=== PATIENT | female | born 1965 | race Caucasian/White ===

== ENCOUNTER 2016-07-19 09:42 | Emergency (ER) | payer OTHER ==
--- NOTE | 2016-07-19 10:50 | UC ---
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 - History of Current Complaint Chief Complaint: UCEye Stated Complaint: EYE COMPLAINT Time Seen by Provider: 07/19/16 10:21 Hx Obtained From: Patient Hx Last Menstrual Period: End jun Location of Injury: Conjunctiva Aggravating Factor(s): Nothing Alleviating Factor(s): Nothing Associated Signs And Symptoms: Positive: Drainage (Purulent) - Risk Factors Penetrating Injury Risk Factor: Negative Globe Rupture Risk Factors: Negative - Allergies/Home Medications Allergies/Adverse Reactions: Allergies Allergy/AdvReac Type Severity Reaction Status Date / Time Bee Venom AdvReac Headache, Verified 07/19/16 10:30 GI Upset Home Medications: Home Medications Erythromycin TAB* 250 mg PO TID 07/19/16 [History Confirmed 07/19/16] PMH/Surg Hx/FS Hx/Imm Hx Previously Healthy: Yes Endocrine History Of: Denies: Diabetes, Thyroid Disease, Hyperthyroidism, Hypothyroidism, Dyslipidemia Cardiovascular History Of: Denies: Cardiac Disorders, Hypertension, Pacemaker/ICD, Myocardial Infarction , Congestive Heart Failure, Atrial Fibrillation, Deep Vein Thrombosis, Bleeding Disorders Respiratory History Of: Denies: COPD, Asthma, Bronchitis, Pneumonia, Pulmonary Embolism GI/ History Of: Reports: Gastroesophageal Reflux, Gall Bladder Disease Denies: Ulcer, Gastrointestinal Bleed, Kidney Stones, Diverticulitis, Renal Disease, Urosepsis Neurological History Of: Denies: TIA, CVA, Dementia, Seizures, Migraine Psychological History Of: Reports: Anxiety, Depression Denies: Bipolar Disorder, Schizophrenia, Post Traumatic Stress Disorder Cancer History Of: Denies: Lung Cancer, Colorectal Cancer, Breast Cancer, Prostate Cancer, Cervical Cancer Other History Of: Negative For: HIV, Hepatitis B, Hepatitis C, Anticoagulant Therapy - Surgical History Surgical History: Yes Surgery Procedure, Year, and Place: 09/08/14--ENDOSCOPY. 06/19/14-- CHOLECYSTECTOMY. COLONOSCOPY 2015 Other Surgical History: cholecystectomy 06/2014, no other abd surgeries - Family History Known Family History: Positive: Unknown, Other - Denies FMH of HTN Negative: Cardiac Disease, Hypertension, Diabetes - Social History Occupation: Employed Full-time Lives: With Family Alcohol Use: None Substance Use Type: None, Prescribed Substance Use Comment - Amount & Last Used: xanax Smoking Status (MU): Never Smoked Tobacco - Immunization History Most Recent Influenza Vaccination: 01/2015 Review of Systems Constitutional: Negative Skin: Negative Eyes: Drainage, Eye Redness ENT: Negative Respiratory: Negative Cardiovascular: Negative Gastrointestinal: Negative Genitourinary: Negative Motor: Negative Neurovascular: Negative Musculoskeletal: Negative Neurological: Negative Psychological: Negative All Other Systems Reviewed And Are Negative: Yes Physical Exam Triage Information Reviewed: Yes Appearance: No Pain Distress, Well-Nourished Vital Signs: Initial Vital Signs Temp 98.3 F 07/19/16 10:20 Pulse 98 07/19/16 10:20 Resp 18 07/19/16 10:20 BP 126/68 07/19/16 10:20 Vital Signs Reviewed: Yes Eyes: Positive: Conjunctiva Inflamed, Discharge ENT: Positive: Pharynx normal, TMs normal. Negative: Nasal congestion Neck: Positive: No Lymphadenopathy Respiratory: Positive: Lungs clear, Normal breath sounds, No respiratory distress Cardiovascular: Positive: RRR, No Murmur, Pulses Normal Abdomen Description: Positive: Nontender, Soft Bowel Sounds: Positive: Present Musculoskeletal: Positive: No Edema Neurological: Positive: Alert Psychological Exam: Normal Skin Exam: Normal Procedures - Procedure Summary Procedure Summary: left eye observed under flouriscine no foreign objects or abrasions observed Eye Complaint Course/Dx - Differential Dx/Diagnosis Differential Diagnosis/HQI/PQRI: Conjunctivitis Provider Diagnoses: conjunctivitis Discharge - Discharge Plan Condition: Stable Disposition: HOME Prescriptions: Erythromycin OPTH OINT* 1 applic BOTH EYES TID #1 tube Patient Education Materials: Conjunctivitis (ED) Referrals: Moriah Ty MD [Primary Care Provider] - Additional Instructions: CONJUNCTIVITIS What is Conjunctivitis? Conjunctivitis is redness and swelling of the conjunctiva, the thin transparent layer that lines the inner eyelid and covers the white part of the eye. The three main types of conjunctivitis are infectious, allergic, and chemical. The infectious type, commonly called "pink eye," is caused by a contagious virus or by bacteria. Your body's allergies to pollen, cosmetics, animals or fabrics often bring on allergic conjunctivitis. Irritants like air pollution, noxious fumes and chlorine in swimming pools may produce the chemical form. Symptoms Might Include: More tearing Eye pain Redness in the eyes Gritty feeling in the eyes Itching of the eye Blurred vision Sensitivity to light Crusts that form on the eyelid overnight Treatment Recommendations: Use eye drops or ointment as directed. Do not rub or touch your eyes. Wash your hands frequently. Use cool compresses to relieve pain and itching. Prevention: Do not share eye make-up. Replace eye make-up frequently. Do not share towels, washcloths, etc. Do not share eye drops. Disinfect and handle contact lenses properly. Call Your Doctor or Return Here IF: Your symptoms worsen or do not improve in 3 to 4 days. You have problems with, or loss of, your vision. You have a significant increase in pain. You have any new symptoms that worry you.
[2016-07-19] MEDS ORDERED: Tetracaine 0.5% OPTH.SOL 4 ML* 1 DROP BTL ONE (10:54)
[2016-07-19] MEDS ORDERED: Fluorescein Sodium TOPICAL* 1 MG TEST ONE (10:54)
[2016-07-19] MEDS ORDERED: BSS OPTH.SOL* BTL ONE (10:54)
[2016-07-19 10:56] VITALS: BP 126/68
== END 2016-07-19 11:11 | disposition home or self-care (01) ==
LOC: UCCORT 09:42
DX: H10.32 Unspecified acute conjunctivitis, left eye (principal); Z90.49 Acquired absence of other specified parts of digestive tract
CPT/HCPCS: 99212; A9270-GY; G0463

== ENCOUNTER 2016-12-21 09:31 | Emergency (ER) | payer OTHER ==
[2016-12-21 10:31] VITALS: BP 124/70
--- NOTE | 2016-12-21 11:11 | UC ---
Throat Pain/Nasal Renato HPI - HPI Summary HPI Summary: nasal congestion and reflux symptoms. Every morning for the last 5 days she has had morning gagging and water brash symptoms. During the day she denies sore throat or significant cough. She also has some mild symptoms of post nasal drip. She has seen GI in the past many times and has had two upper endoscopies. she is on PPI twice a day and another "stomach pill" 4 times a day and at times if she does not cut this large pill it will at times get stuck. - History of Current Complaint Chief Complaint: UCRespiratory Stated Complaint: COUGH/CHEST CONGESTION Time Seen by Provider: 12/21/16 10:49 Hx Obtained From: Patient Hx Last Menstrual Period: 3RD WK IN Onset/Duration: Gradual Onset, Lasting Days Severity: Mild Cough: Other: - cough and gagging only in the morning. Associated Signs & Symptoms: Positive: Dysphagia - Epiglottits Risk Factors Epiglottis Risk Factors: Negative - Allergies/Home Medications Allergies/Adverse Reactions: Allergies Allergy/AdvReac Type Severity Reaction Status Date / Time Bee Venom AdvReac Headache, Verified 12/21/16 10:22 GI Upset Ibuprofen AdvReac Vomiting Verified 12/21/16 10:22 Home Medications: Home Medications Sucralfate TAB* [Carafate*] 1 gm PO QID 12/21/16 [History Confirmed 12/21/16] PMH/Surg Hx/FS Hx/Imm Hx Previously Healthy: No - GERD. Other History Of: Negative For: HIV, Hepatitis B, Hepatitis C, Anticoagulant Therapy - Surgical History Surgical History: Yes Surgery Procedure, Year, and Place: 09/08/14--ENDOSCOPY. 06/19/14-- CHOLECYSTECTOMY. COLONOSCOPY 2015 Other Surgical History: cholecystectomy 06/2014, no other abd surgeries - Family History Known Family History: Positive: Unknown, Other - Denies FMH of HTN Negative: Cardiac Disease, Hypertension, Diabetes - Social History Lives: With Family Alcohol Use: Occasionally Substance Use Type: None Substance Use Comment - Amount & Last Used: xanax Smoking Status (MU): Never Smoked Tobacco - Immunization History Most Recent Influenza Vaccination: 01/2015 Review of Systems Gastrointestinal: Other - water brash in the morning. All Other Systems Reviewed And Are Negative: Yes Physical Exam Triage Information Reviewed: Yes Appearance: Well-Appearing, No Pain Distress, Obese Vital Signs: Initial Vital Signs Temp 98.1 F 12/21/16 10:25 Pulse 90 12/21/16 10:25 Resp 18 12/21/16 10:25 BP 124/70 12/21/16 10:25 Pulse Ox 97 12/21/16 10:25 Vital Signs Reviewed: Yes Eye Exam: Normal ENT Exam: Normal ENT: Positive: Pharynx normal, TMs normal. Negative: Pharyngeal erythema, Nasal congestion, Tonsillar swelling, Tonsillar exudate, Trismus Neck exam: Normal Respiratory Exam: Normal Cardiovascular Exam: Normal Abdominal Exam: Normal Musculoskeletal Exam: Normal Neurological Exam: Normal Psychological Exam: Normal Skin Exam: Normal Throat Pain/Nasal Course/Dx - Course Course Of Treatment: her symptoms are primarily in the morning. It is gagging and burning. the rest ofthe day she is essentially well. her abd exam is completely benign. she is already being treated aggressively for GERD. She says her prior GI doctor is out of practice she believes. she agrees to f/u with our Gi. some lifestyle modifications suggested. No signs of acute infection of any kind. - Differential Dx/Diagnosis Provider Diagnoses: esophagitis. rhinorrhea. Discharge - Discharge Plan Condition: Good Disposition: HOME Patient Education Materials: Gastritis (ED), Esophagitis (ED) Referrals: Ez Novoa MD [Medical Doctor] - Additional Instructions: Try otc decongestants like mucinex and do not eat any large meals after 6pm. follow up with your primary care doctor as already planned and with our GI doctor as we discussed.
== END 2016-12-21 11:08 | disposition home or self-care (01) ==
LOC: UCCORT 09:31
DX: K20.9 Esophagitis, unspecified (principal); J34.89 Other specified disorders of nose and nasal sinuses; K21.9 Gastro-esophageal reflux disease without esophagitis; E66.9 Obesity, unspecified; Z90.49 Acquired absence of other specified parts of digestive tract; Z88.6 Allergy status to analgesic agent; Z91.030 Bee allergy status
CPT/HCPCS: 99211; G0463

== ENCOUNTER 2016-12-23 16:53 | Emergency (ER) | payer OTHER ==
--- NOTE | 2016-12-23 17:56 | UC ---
Respiratory Complaint HPI - HPI Summary HPI Summary: 51 YEAR OLD FEMALE PRESENTS WITH COUGH, SINUS CONGESTION, AND RIGHT EAR PAIN. - History of Current Complaint Stated Complaint: COUGH/CHEST CONGESTION Time Seen by Provider: 12/23/16 17:52 Hx Obtained From: Patient Hx Last Menstrual Period: 3RD WK IN Onset/Duration: Sudden Onset Severity Initially: Moderate Severity Currently: Moderate Pain Scale Used: 0-10 Numeric - 5 Associated Signs And Symptoms: Positive: Wheezing Related History: Seasonal Allergies - Allergies/Home Medications Allergies/Adverse Reactions: Allergies Allergy/AdvReac Type Severity Reaction Status Date / Time Bee Venom AdvReac Headache, Verified 12/23/16 18:01 GI Upset Ibuprofen AdvReac Vomiting Verified 12/23/16 18:01 PMH/Surg Hx/FS Hx/Imm Hx Previously Healthy: Yes Other History Of: Negative For: HIV, Hepatitis B, Hepatitis C, Anticoagulant Therapy - Surgical History Surgical History: Yes Surgery Procedure, Year, and Place: 09/08/14--ENDOSCOPY. 06/19/14-- CHOLECYSTECTOMY. COLONOSCOPY 2015 Other Surgical History: cholecystectomy 06/2014, no other abd surgeries - Family History Known Family History: Positive: Unknown, Other - Denies H of HTN Negative: Cardiac Disease, Hypertension, Diabetes - Social History Alcohol Use: Occasionally Substance Use Type: None Substance Use Comment - Amount & Last Used: xanax Smoking Status (MU): Never Smoked Tobacco - Immunization History Most Recent Influenza Vaccination: 01/2015 Review of Systems Constitutional: Negative Skin: Negative Eyes: Negative ENT: Negative Respiratory: Negative Cardiovascular: Negative Gastrointestinal: Negative Genitourinary: Negative Motor: Negative Neurovascular: Negative Musculoskeletal: Negative Neurological: Negative Psychological: Negative All Other Systems Reviewed And Are Negative: Yes Physical Exam Triage Information Reviewed: Yes Vital Signs Reviewed: Yes Eye Exam: Normal ENT Exam: Normal Dental Exam: Normal Neck exam: Normal Neck: Positive: 1 Respiratory Exam: Normal Cardiovascular Exam: Normal Abdominal Exam: Normal Musculoskeletal Exam: Normal Neurological Exam: Normal Psychological Exam: Normal Skin Exam: Normal Respiratory Course/Dx - Differential Dx/Diagnosis Provider Diagnoses: cough. sinusitis Discharge - Discharge Plan Condition: Stable Disposition: HOME Prescriptions: Amoxicillin/Clavulanate TAB* [Augmentin TAB 875*] 875 mg PO BID #20 tab Guaifenesin-Codeine [Cheratussin AC] 1 syp PO Q8HR PRN #120 syp MDD 15 ML PRN Reason: Cough LoraTADine TAB(NF) [Claritin 10 MG TAB(NF)] 10 mg PO DAILY #30 tab Patient Education Materials: Allergic Rhinitis (ED) Referrals: Moriah Ty MD [Primary Care Provider] -
[2016-12-23 18:01] VITALS: BP 123/70
== END 2016-12-23 18:05 | disposition home or self-care (01) ==
LOC: UCCORT 16:53
DX: R05 Cough (principal); J32.9 Chronic sinusitis, unspecified
CPT/HCPCS: 99212; G0463

== ENCOUNTER 2017-02-20 10:16 | Emergency (ER) | payer OTHER, MEDICAID ==
[2017-02-20 10:47] VITALS: BP 143/89
--- NOTE | 2017-02-20 11:04 | UC ---
Throat Pain/Nasal Renato HPI - HPI Summary HPI Summary: Pt present to UC with complaint of + sinus pressure, PND, cough and ear congestion R>L Pt states has taken Robitussin and Afrin with mild relief. Pt with a h/o sinus infections and states this feels similar. Pt denies fevers, chills. Sx worse with leaning forward R>L. No rash. Pt works daycare + sick contacts - History of Current Complaint Chief Complaint: UCRespiratory Stated Complaint: SINUS,EAR PAIN Time Seen by Provider: 02/20/17 10:49 Hx Obtained From: Patient Hx Last Menstrual Period: 3RD WK IN Severity: Moderate Pain Intensity: 6 Pain Scale Used: 0-10 Numeric Cough: Nonproductive Associated Signs & Symptoms: Negative: Dysphagia, Hoarseness, Fever - Allergies/Home Medications Allergies/Adverse Reactions: Allergies Allergy/AdvReac Type Severity Reaction Status Date / Time Bee Venom AdvReac Headache, Verified 02/20/17 10:48 GI Upset Ibuprofen AdvReac Vomiting Verified 02/20/17 10:48 Home Medications: Home Medications [id number] [Vicks Sinex Daytime/Night] 1 cap PO BID [History Confirmed 02/20/17] Oxymetazoline 0.05% NASAL SPR* [Afrin 0.05% NASAL SPRAY*] 1 spray NASAL Q12H PRN 02/20/17 [History Confirmed 02/20/17] Pseudoephedrine HCL ER TAB* [Sudafed 12 Hour*] 120 mg PO BID 02/20/17 [History Confirmed 02/20/17] PMH/Surg Hx/FS Hx/Imm Hx Previously Healthy: Yes Other History Of: Negative For: HIV, Hepatitis B, Hepatitis C, Anticoagulant Therapy - Surgical History Surgical History: Yes Surgery Procedure, Year, and Place: 09/08/14--ENDOSCOPY. 06/19/14-- CHOLECYSTECTOMY. COLONOSCOPY 2016 Other Surgical History: cholecystectomy 06/2014, no other abd surgeries - Family History Known Family History: Positive: Unknown, Other - Denies FMH of HTN Negative: Cardiac Disease, Hypertension, Diabetes - Social History Occupation: Employed Full-time Lives: With Family Alcohol Use: Occasionally Substance Use Type: None Substance Use Comment - Amount & Last Used: xanax Smoking Status (MU): Never Smoked Tobacco - Immunization History Most Recent Influenza Vaccination: 01/2015 Review of Systems Constitutional: Fatigue Eyes: Negative ENT: Sore Throat, Ear Ache, Sinus Congestion, Sinus Pain/Tenderness, Other - PND Respiratory: Cough - no productive Cardiovascular: Negative Gastrointestinal: Negative Genitourinary: Negative Psychological: Negative Is Patient Immunocompromised?: No All Other Systems Reviewed And Are Negative: Yes Physical Exam Triage Information Reviewed: Yes Appearance: Well-Appearing, No Pain Distress, Well-Nourished Vital Signs: Initial Vital Signs Temp 97.3 F 02/20/17 10:41 Pulse 84 02/20/17 10:41 Resp 16 02/20/17 10:41 BP 143/89 02/20/17 10:41 Pulse Ox 97 02/20/17 10:41 Vital Signs Reviewed: Yes Eye Exam: Normal Eyes: Positive: Conjunctiva Clear ENT: Positive: Other: - right TM- mild fluid, no erythema turbinates inflammed nad boggy + PND + mild erythema - no exudate uvula midline + max sinus pain R >L Dental Exam: Normal Neck exam: Normal Neck: Positive: Supple, Nontender, No Lymphadenopathy Respiratory Exam: Normal Respiratory: Positive: Chest non-tender, Lungs clear, Normal breath sounds, No respiratory distress, No accessory muscle use Cardiovascular Exam: Normal Cardiovascular: Positive: RRR, No Murmur Abdominal Exam: Normal Abdomen Description: Positive: Nontender, No Organomegaly, Soft Bowel Sounds: Positive: Present Musculoskeletal Exam: Normal Neurological Exam: Normal Neurological: Positive: Alert Psychological Exam: Normal Psychological: Positive: Normal Response To Family Skin Exam: Normal Throat Pain/Nasal Course/Dx - Course Assessment/Plan: Pt with nasal congestion, PND. + TTP right max sinus, fluid right ear. PND. Pt using Aftrin- d/w pt limit use to 3 days. Will Rx flonase , Zithromax. hydrate. secretion precautions - Differential Dx/Diagnosis Provider Diagnoses: sinusitis Discharge - Discharge Plan Condition: Stable Disposition: HOME Prescriptions: Azithromycin TAB* [Zithromax TAB (Z-VERENA) 250 mg #6 tabs] 2 tab PO .TODAY, THEN 1 DAILY #1 verena Fluticasone NASAL SPRAY 50MCG* [Flonase NASAL SPRAY 50MCG*] 1 spray BOTH NARES DAILY #1 btl Patient Education Materials: Sinusitis (ED) Referrals: Moriah Ty MD [Primary Care Provider] - Additional Instructions: - Stay well hydrated. Drink plenty of non-alcoholic, non-caffinated beverages - Take antibiotics a day as prescribed - Use nasal spray daily as prescribed - Okay to take deconstant such as sudafed - purchase at pharmacy counter - no prescription needed - After you have been on antibiotics for 2 days - change your toothbrush and your pillowcase. These infections are spread by secrtions - do NOT share eating or drinking utensils - clean items you share with other people such as iphone, computer mouse, TV remote, etc - Alternate ibuprofen (Advil, motrin) 600mg and tylenol eveyry 3 hours for pain or fever. Do NOT take ibuprofen if you are taking Naprosyn - Call your doctor or return to the emergency department with questions or concerns
== END 2017-02-20 11:14 | disposition home or self-care (01) ==
LOC: UCCORT 10:16
DX: J32.9 Chronic sinusitis, unspecified (principal); Z88.6 Allergy status to analgesic agent; Z91.030 Bee allergy status
CPT/HCPCS: 99212; G0463

== ENCOUNTER 2017-05-29 12:30 | Emergency (ER) | payer MEDICAID, OTHER ==
[2017-05-29 14:54] VITALS: BP 119/77
--- NOTE | 2017-05-29 15:13 | RAD ---
HISTORY: Left ankle trauma COMPARISONS: July 21, 2014 VIEWS: 3, Frontal, lateral, and oblique views of the left ankle FINDINGS: BONE DENSITY: Normal. BONES: There is no displaced fracture. There is a posterior calcaneal enthesophyte. JOINTS: There is no arthropathy. ALIGNMENT: There is no dislocation. SOFT TISSUES: Unremarkable. OTHER FINDINGS: None. IMPRESSION: NO ACUTE OSSEOUS INJURY. IF SYMPTOMS PERSIST, RECOMMEND REPEAT IMAGING.
--- NOTE | 2017-05-29 15:14 | RAD ---
HISTORY: Left lower leg trauma COMPARISONS: None VIEWS: 2, Frontal and lateral views of the left foreleg FINDINGS: BONE DENSITY: Normal. BONES: There is no displaced fracture. JOINTS: There is mild osteoarthritis of the knee ALIGNMENT: There is no dislocation. SOFT TISSUES: Unremarkable. OTHER FINDINGS: None. IMPRESSION: NO ACUTE OSSEOUS INJURY. IF SYMPTOMS PERSIST, RECOMMEND REPEAT IMAGING.
--- NOTE | 2017-05-29 15:14 | RAD ---
HISTORY: Left knee trauma COMPARISONS: November 30, 2014 VIEWS: 4, Frontal, lateral, axial, and oblique views of the left knee FINDINGS: BONE DENSITY: Normal. BONES: There is no displaced fracture. JOINTS: There is mild tricompartmental osteophyte formation with joint space narrowing of the medial compartment. There is no suprapatellar joint effusion or lipohemarthrosis. ALIGNMENT: There is no dislocation. SOFT TISSUES: Unremarkable. OTHER FINDINGS: None. IMPRESSION: MILD OSTEOARTHRITIS. NO ACUTE OSSEOUS INJURY. IF SYMPTOMS PERSIST, RECOMMEND REPEAT IMAGING.
--- NOTE | 2017-05-29 15:41 | ED ---
Lower Extremity - HPI Summary HPI Summary: 52 yr old female with the complaint of left knee pain. Onset 630 am today when she fell on her knee. Her pain is in the lateral left knee and radiates down the left leg into the foot that feels like pain and also tingling. Denies trouble bearing weight. Denies dizziness. She has no other complaints. - History of Current Complaint Chief Complaint: UCLowerExtremity Stated Complaint: LEFT KNEE/FOOT Time Seen by Provider: 05/29/17 14:48 Hx Last Menstrual Period: 3RD WK IN Pain Intensity: 4 - Allergies/Home Medications Allergies/Adverse Reactions: Allergies Allergy/AdvReac Type Severity Reaction Status Date / Time Bee Venom AdvReac Headache, Verified 05/29/17 14:46 GI Upset Ibuprofen AdvReac Vomiting Verified 05/29/17 14:46 PMH/Surg Hx/FS Hx/Imm Hx Endocrine/Hematology History: Denies: Hx Anticoagulant Therapy, Hx Diabetes, Hx Thyroid Disease Cardiovascular History: Denies: Hx Congestive Heart Failure, Hx Deep Vein Thrombosis, Hx Hypertension , Hx Myocardial Infarction, Hx Pacemaker/ICD Respiratory History: Denies: Hx Asthma, Hx Chronic Obstructive Pulmonary Disease (COPD), Hx Lung Cancer, Hx Pneumonia, Hx Pulmonary Embolism GI History: Reports: Hx Gall Bladder Disease Denies: Hx Gastrointestinal Bleed, Hx Ulcer, Hx Urosepsis History: Denies: Hx Kidney Stones, Hx Renal Disease Neurological History: Denies: Hx Dementia, Hx Migraine, Hx Seizures, Hx Transient Ischemic Attacks (TIA) Psychiatric History: Reports: Hx Anxiety, Hx Depression Denies: Hx Schizophrenia, Hx Bipolar Disorder - Cancer History Hx Chemotherapy: No Hx Radiation Therapy: No - Surgical History Surgery Procedure, Year, and Place: 09/08/14--ENDOSCOPY. 06/19/14-- CHOLECYSTECTOMY. COLONOSCOPY 2015 Infectious Disease History: No Infectious Disease History: Denies: Hx Clostridium Difficile, Hx Hepatitis, Hx Human Immunodeficiency Virus (HIV), Hx of Known/Suspected MRSA, Hx Shingles, Hx Tuberculosis, Hx Known/ Suspected VRE, Hx Known/Suspected VRSA, History Other Infectious Disease, Traveled Outside the [place] in Last 30 Days - Family History Known Family History: Positive: Unknown, Other - Denies FMH of HTN Negative: Cardiac Disease, Hypertension, Diabetes - Social History Alcohol Use: None Substance Use Type: Reports: None Substance Use Comment - Amount & Last Used: xanax Smoking Status (MU): Current Some Day Smoker Type: Cigarettes Amount Used/How Often: 1 CIG/DAY Review of Systems Positive: Other - left knee pain All Other Systems Reviewed And Are Negative: Yes Physical Exam Triage Information Reviewed: Yes Vital Signs On Initial Exam: Initial Vitals Temp Pulse Resp BP Pulse Ox 98 F 94 16 119/77 98 05/29/17 14:48 05/29/17 14:48 05/29/17 14:48 05/29/17 14:48 05/29/17 14:48 Vital Signs Reviewed: Yes Appearance: Positive: Well-Appearing, No Pain Distress Skin: Positive: Warm Head/Face: Positive: Normal Head/Face Inspection Eyes: Positive: EOMI ENT: Positive: Normal ENT inspection Neck: Positive: Nontender Respiratory/Lung Sounds: Positive: Clear to Auscultation, Breath Sounds Present Cardiovascular: Positive: RRR. Negative: Murmur Abdomen Description: Positive: Nontender Musculoskeletal: Positive: Other - left knee is tender over the lateral area without effusion, bruising, redness. The patient has diffuse tenderness left fibula and left lateral malleolus. No gross deformity. No effusion ankle. The patient has good range of motion as well. Neurological: Positive: Sensory/Motor Intact, Alert, Oriented to Person Place, Time, CN Intact II-III Diagnostics - Vital Signs Vital Signs Temp Pulse Resp BP Pulse Ox 05/29/17 14:48 98 F 94 16 119/77 98 - Laboratory Lab Statement: Any lab studies that have been ordered have been reviewed, and results considered in the medical decision making process. - Radiology xray left knee, tib fib, and ankle Xray Interpretation: No Acute Changes Radiology Interpretation Completed By: Radiologist - final report reviewed. Lower Extremity Course/Dx - Course Course Of Treatment: 52 yr old with contusion to the knee. Plan to DC home. FU with PMD. - Diagnoses Provider Diagnoses: Contusion, knee and lower leg Discharge - Discharge Plan Condition: Good Disposition: HOME Patient Education Materials: Contusion in Adults (ED), Knee Pain (ED) Referrals: Moriah Ty MD [Primary Care Provider] -
== END 2017-05-29 15:40 | disposition home or self-care (01) ==
LOC: UCCORT 12:30
DX: S80.02XA Contusion of left knee, initial encounter (principal); S80.12XA Contusion of left lower leg, initial encounter; W19.XXXA Unspecified fall, initial encounter; Y93.9 Activity, unspecified; Y92.9 Unspecified place or not applicable; M17.12 Unilateral primary osteoarthritis, left knee; F41.9 Anxiety disorder, unspecified; F32.9 Major depressive disorder, single episode, unspecified; Z88.6 Allergy status to analgesic agent; Z91.030 Bee allergy status; Z90.49 Acquired absence of other specified parts of digestive tract; Z72.0 Tobacco use
CPT/HCPCS: 99211; G0463

== ENCOUNTER 2017-06-26 10:11 | Emergency (ER) | payer MEDICAID ==
[2017-06-26 10:58] VITALS: BP 109/70
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
== END 2017-06-26 11:26 | disposition home or self-care (01) ==
LOC: UCCORT 10:11
DX: S00.03XA Contusion of scalp, initial encounter (principal); M54.2 Cervicalgia; V49.88XA Car occupant (driver) (passenger) injured in other specified transport accidents, initial encounter; Y93.89 Activity, other specified; Y92.410 Unspecified street and highway as the place of occurrence of the external cause; Z87.891 Personal history of nicotine dependence
CPT/HCPCS: 99211; G0463

== ENCOUNTER 2017-07-19 09:27 | Emergency (ER) | payer MEDICAID | END 2017-07-19 10:44 | disposition left against medical advice (07) | LOC: UCCORT 09:27 | DX: H92.02 Otalgia, left ear (principal); M54.2 Cervicalgia; R09.81 Nasal congestion; Z53.21 Procedure and treatment not carried out due to patient leaving prior to being seen by health care provider ==

== ENCOUNTER 2018-01-18 17:05 | Emergency (ER) | payer OTHER ==
[2018-01-18 18:10] VITALS: BP 116/70
--- NOTE | 2018-01-18 19:33 | UC ---
Throat Pain/Nasal Renato HPI - HPI Summary HPI Summary: 52 yo smoker with 1 day history of sinus pressure and mild illness. Has been using flonaseand acetaminophen. - History of Current Complaint Chief Complaint: UCRespiratory Stated Complaint: ST,SINUS COMPLAINT Time Seen by Provider: 01/18/18 18:49 Hx Obtained From: Patient Hx Last Menstrual Period: 3RD WK IN Onset/Duration: Gradual Onset, Lasting Days - 2 Severity: Mild Pain Intensity: 5 Cough: None Associated Signs & Symptoms: Positive: Negative - Epiglottits Risk Factors Epiglottis Risk Factors: Negative - Allergies/Home Medications Allergies/Adverse Reactions: Allergies Allergy/AdvReac Type Severity Reaction Status Date / Time bee venom protein (honey bee) Allergy Headache Verified 01/18/18 18:07 ibuprofen Allergy Vomiting Verified 01/18/18 18:07 PMH/Surg Hx/FS Hx/Imm Hx Previously Healthy: Yes GI/ History: Gastroesophageal Reflux Other History Of: Negative For: HIV, Hepatitis B, Hepatitis C, Anticoagulant Therapy - Surgical History Surgical History: Yes Surgery Procedure, Year, and Place: 09/08/14--ENDOSCOPY. 06/19/14-- CHOLECYSTECTOMY. COLONOSCOPY 2015 Other Surgical History: cholecystectomy 06/2014, no other abd surgeries - Family History Known Family History: Positive: None - states parents living and healthy, Other - Denies H of HTN Negative: Cardiac Disease, Hypertension, Diabetes - Social History Occupation: Works From/At Home Lives: With Family Alcohol Use: Weekly Alcohol Amount: 1/WEEK Substance Use Type: None Substance Use Comment - Amount & Last Used: xanax Smoking Status (MU): Former Smoker Type: Cigarettes Amount Used/How Often: 1 CIG/DAY Have You Smoked in the Last Year: Yes When Did the Patient Quit Smoking/Using Tobacco: 06/2017 - Immunization History Most Recent Influenza Vaccination: 01/2015 Most Recent Tetanus Shot: UTD Review of Systems Constitutional: Negative Skin: Negative Eyes: Negative ENT: Sore Throat, Nasal Discharge, Sinus Pain/Tenderness Respiratory: Negative Cardiovascular: Negative Gastrointestinal: Negative Genitourinary: Negative Motor: Negative Neurovascular: Negative Musculoskeletal: Negative Neurological: Headache Psychological: Negative Is Patient Immunocompromised?: No All Other Systems Reviewed And Are Negative: Yes Physical Exam Triage Information Reviewed: Yes Appearance: Well-Appearing, Obese Vital Signs: Initial Vital Signs Temp 97.3 F 01/18/18 18:07 Pulse 89 01/18/18 18:07 Resp 15 01/18/18 18:07 BP 116/70 01/18/18 18:07 Pulse Ox 100 01/18/18 18:07 ENT: Positive: Pharyngeal erythema, TMs normal Neck: Positive: Supple, Nontender, No Lymphadenopathy Respiratory: Positive: Lungs clear, Normal breath sounds Cardiovascular: Positive: RRR, No Murmur Skin Exam: Normal Throat Pain/Nasal Course/Dx - Course Course Of Treatment: symptomatic treatment of viral illness--continue flonase and acetaminophen. - Differential Dx/Diagnosis Differential Diagnosis/HQI/PQRI: Laryngitis, Pharyngitis, URI Provider Diagnoses: viral URI Discharge - Sign-Out/Discharge Documenting (check all that apply): Patient Departure All imaging exams completed and their final reports reviewed: No Studies - Discharge Plan Condition: Stable Disposition: HOME Patient Education Materials: Upper Respiratory Infection (ED) Referrals: Ira Byrne MD [Primary Care Provider] - Additional Instructions: continue symptomatic treatment with flonase and acetaminophen as needed. Mucinex (guaifensin) might help to relieve some of the sinus pressure. - Billing Disposition and Condition Condition: STABLE Disposition: Home
== END 2018-01-18 19:41 | disposition home or self-care (01) ==
LOC: UCCORT 17:05
DX: J06.9 Acute upper respiratory infection, unspecified (principal); Z87.891 Personal history of nicotine dependence
CPT/HCPCS: 99211; G0463

== ENCOUNTER 2018-03-02 16:17 | Emergency (ER) | payer OTHER ==
[2018-03-02 17:57] VITALS: BP 126/68
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
== END 2018-03-02 18:47 | disposition home or self-care (01) ==
LOC: UCCORT 16:17
DX: S66.912A Strain of unspecified muscle, fascia and tendon at wrist and hand level, left hand, initial encounter (principal); S66.911A Strain of unspecified muscle, fascia and tendon at wrist and hand level, right hand, initial encounter; S29.012A Strain of muscle and tendon of back wall of thorax, initial encounter; F17.210 Nicotine dependence, cigarettes, uncomplicated; Z91.030 Bee allergy status; Z88.6 Allergy status to analgesic agent; W01.0XXA Fall on same level from slipping, tripping and stumbling without subsequent striking against object, initial encounter; Y92.9 Unspecified place or not applicable
CPT/HCPCS: 99212; G0463

== ENCOUNTER 2018-07-24 08:55 | Emergency (ER) | payer OTHER ==
--- OUTSIDE RECORDS SUMMARY | 2018-07-24 09:03 | XMS REPORT | Continuity of Care Document ---
:1965 External Reference #:[id number] Author Name Nida Jimenez Care Team Providers Name Role Phone Ira Byrne MD Care Team Information Regrinder Unavailable Ira Byrne MD Primary Care Physician Unavailable Payers Date Identification Numbers Payment Provider Subscriber Policy Number: [id number] [employer] Lillie Mcclellan PayID: [id number] [address] [place] [address] Advance Directives Description No Information Available Problems Date Description Provider Status Onset: 03/17/2015 Gastroparesis syndrome Keila Reyna PA-C Active Note: [facility] September 2014 Onset: 03/17/2015 Irritable bowel syndrome Keila Reyna PA-C Active Note: [place] to TI Bx Mar 2015 Onset: 03/17/2015 Anxiety Keila Reyna PA-C Active Onset: 03/17/2015 Gastroesophageal reflux disease Keila Reyna PA-C Active Note: upper to D3 Bx 2015 Onset: 03/17/2015 Obesity Keila Reyna PA-C Active Onset: 03/17/2015 Adult health examination Keila Reyna PA-C Active Note: PCP Dr. Ty (KAYLA Medina) Onset: 04/13/2015 Diverticular disease of colon Keila Reyna PA-C Active Onset: 06/16/2015 Acquired trigger finger Jennifer Singh PA Active Onset: 06/16/2015 Localized, primary osteoarthritis Jennifer Singh PA Active of the hand Family History Date Family Member(s) Observation Comments Father Non Contributory Mother Non Contributory Social History Type Date Description Comments Sex Unknown Marital Status Single Home Environment Lives with parents Occupation Daycare worker Work Status Currently Working Tobacco Use Start: Unknown Never Smoked Cigarettes Smoking Status Reviewed: 01/16/18 Never Smoked Cigarettes ETOH Use Denies alcohol use Tobacco Use Start: Unknown Patient has never smoked Recreational Drug Use Denies Drug Use Allergies, Adverse Reactions, Alerts Description No Known Drug Allergies Medications Medication Date Status Form Strength Qnty SIG Indications Ordering Provider Pantoprazole 11/[address] 40mg 30tab 1 by mouth Chas Sodium /2016 s every day , MD Barney SM Loratadine 06/09 Active Tablets 10mg 1 po tid Melecio MD Andrea Metoclopramide 05/05 Active Tablets 10mg 120ta 1 by mouth K31.84 Melecio, bs qac three Andrea, times a day MD and at hs One Daily For Active Tablets 1 by mouth Unknown Women /0000 every day Escitalopram Active Tablets 10mg Once Daily Unknown Oxalate Flonase Active Suspension 50mcg/Act 16uni 2 Times A Unknown /0000 ts Day Erythromycin Active Tablets 250mg 120ta take one Vatra, bs tablet by carlos Mendez three MD times a day before a meal and at hs Proctosol HC 06/09 Hx Cream 2.5% 85.05 Apply to R19.5 gm anal area Andrea - tid prn 06/16 Aluminum-Magnesi 05/05 Hx Suspension 200-200-2 1080m use as K21.9 Cali -Simethicone 0mg/5ML l directed Cindy Mendez MD 06/09 Golytely 03/18 Hx Solution 227.1gm 1unit drink 05/02 Cali Rec s the jug the Andrea, - day before 04/20 (1 glass /2014 every 10 minutes), repeat and drink the other half the morning of the procedure Meloxicam 02/19 Hx Tablets 15mg 30tab 1 by mouth Pompo, s every day Cindy Richmond M.D. 06/09 Aluminum-Magnesi Hx Suspension 200-200-2 by mouth q2 Unknown um-Simethicone /0000 0mg/5ML hours as - needed 12/29 heart Ascorbic Acid Hx Tablets 500mg 1 by mouth Unknown /0000 every day - 12/29 Cetirizine HCL Hx Tablets 10mg 1 by mouth Unknown /0000 every day - 03/20 Cyclobenzaprine Hx Tablets 10mg 1 by mouth Unknown HCL /0000 three times - a day as 12/29 muscle spasms Fluticasone Hx Suspension 50mcg/Act 1 sprays Unknown Propionate /0000 intranasal - every day 05/05 Oxybutynin Hx Tablets 5mg 1 tab by Unknown Chloride / mouth daily - 05/05 Paroxetine HCL Hx Tablets 30mg 1 by mouth Unknown /0000 every day - 12/29 Sucralfate Hx Tablets 1gm 1 qd Unknown / - 01/01 Escitalopram Hx Tablets 10mg 1 po qd Unknown Oxalate / - 05/05 Amitriptyline Hx Tablets 10mg 1 po qd Unknown HCL / - 03/18 Anti-Gas Hx Unknown / - 03/18 Loratadine Hx Tablets 10mg Unknown / - 03/18 Probiotic Hx Capsules prn Unknown Acidophilus / - 06/09 Womans 00 Hx Capsules Unknown / - 03/18 Tylenol Hx Tablets 325mg 2 po prn Unknown / - 06/09 Loratadine Hx Tablets 10mg 2 Times A Unknown / Day - 06/09 Ditropan XL Hx Tablets ER 10mg Once Daily Unknown / 24HR - 06/[address] 40mg 180ta take one Vatra, Sodium / bs tablet by Andrea, - mouth twice MD 11/07 a Medications Administered in Office Medication Date Status Form Strength Qnty SIG Indications Ordering Provider Betamethasone 06/16/ Injection Francisco, Acetate & Sodium 2015 KAYLA Rodriguez Phosphate 3 MG Of Each Immunizations Description No Information Available Vital Signs Date Vital Result Comment 01/19/2016 10:40am BP Systolic Sitting Left Arm 122 mmHg BP Diastolic Sitting Left Arm 88 mmHg Heart Rate 99 /min Respiratory Rate 16 /min Height 64 inches 5'4" Weight 233.00 lb BMI (Body Mass Index) 40.0 kg/m2 BSA (Body Surface Area) 2.09 m2 12/29/2015 10:03am BP Systolic Sitting Left Arm 132 mmHg BP Diastolic Sitting Left Arm 78 mmHg Heart Rate 96 /min Respiratory Rate 16 /min Height 64 inches 5'4" Weight 236.00 lb BMI (Body Mass Index) 40.5 kg/m2 BSA (Body Surface Area) 2.10 m2 06/25/2015 9:17am BP Systolic 118 mmHg BP Diastolic 73 mmHg Heart Rate 104 /min Height 64 inches 5'4" Weight 234.00 lb BMI (Body Mass Index) 40.2 kg/m2 BSA (Body Surface Area) 2.09 m2 06/09/2015 9:22am BP Systolic 134 mmHg BP Diastolic 80 mmHg Heart Rate 103 /min Height 64 inches 5'4" Weight 236.00 lb BMI (Body Mass Index) 40.5 kg/m2 BSA (Body Surface Area) 2.10 m2 05/05/2015 11:01am BP Systolic 120 mmHg BP Diastolic 74 mmHg Heart Rate 96 /min Height 64 inches 5'4" Weight 277.00 lb BMI (Body Mass Index) 47.5 kg/m2 BSA (Body Surface Area) 2.25 m2 03/18/2015 9:49am BP Systolic 116 mmHg BP Diastolic 76 mmHg Heart Rate 104 /min Respiratory Rate 20 /min Height 64 inches 5'4" Weight 224.00 lb BMI (Body Mass Index) 38.4 kg/m2 BSA (Body Surface Area) 2.05 m2 12/29/2014 8:31am BP Systolic Sitting Right Arm 124 mmHg BP Diastolic Sitting Right Arm 85 mmHg Heart Rate 98 /min Height 64 inches 5'4" Weight 223.00 lb BMI (Body Mass Index) 38.3 kg/m2 BSA (Body Surface Area) 2.05 m2 Results Test Date Facility Test Result H/L Range Note H. Pylori Stool 12/29/2015 [facility] H. Pylori Stool Negative N Negative 1, [address] [place] [address] [phone] @[facility] Id: [id number] @[facility] Req #: [id number] Laboratory 06/17/2015 [facility] Esophageal Biopsy See Note 3 test finding [address] [place] [address] [phone] Laboratory 06/17/2015 [facility] Urine HCG NEGATIVE Negative 4 test finding [address] (Qualitative) [place] [address] [phone] Laboratory 03/25/2015 [facility] Polyp Colon And/Or See Note 5 test finding [address] [place] [address] [phone] Laboratory 03/20/2015 N2N/CCD Import Alanine 28 12-78 test finding Aminotransferase (Alt/SGPT) Albumin 3.7 3.4-5.0 Albumin/Globulin Ratio 1.1 Alkaline Phosphatase 105 45-117 Anion Gap 5 Low 8-16 Aspartate Amino Transf (Ast/Sgot) 15 15-37 BUN/Creatinine Ratio 30.0 Blood Urea Nitrogen 27 High 7-18 Calcium Level 8.9 8.5-10.1 Carbon Dioxide Level 28 21-32 Chloride Level 108 High 98-107 Creatinine 0.9 0.6-1.3 Globulin 3.4 1.9-4.3 Glucose Screen 101 74-106 Hematocrit 39.7 36.0-46.1 Hemoglobin 12.9 11.6-15.8 Lipase 77 73-393 Mean Corpuscular Hemoglobin 29.1 25.9-32.7 Mean Corpuscular Hemoglobin Concent 32.5 30.8-34.3 Mean Corpuscular Volume 89.4 80.9-99.0 Mean Platelet Volume 10.1 8.9-12.4 Platelet Count 292 155-360 Potassium Level 4.7 3.5-5.1 RDW Coefficient of Variation 13.3 11.7-14.4 Red Blood Count 4.44 3.90-5.40 Sodium Level 141 136-145 Total Bilirubin 0.2 0.2-1.0 Total Protein 7.1 6.4-8.2 White Blood Count 8.1 3.1-10.7 Laboratory test finding 01/04/2015 N2N/CCD Import Anion Gap 6 Low 8-16 BUN/Creatinine Ratio 28.5 Basophils # (Auto) 0.02 0.0-0.1 Basophils (%) (Auto) 0.3 0.0-1.1 Blood Urea Nitrogen 20 High 7-18 Calcium Level 8.9 8.5-10.1 Carbon Dioxide Level 24 21-32 Chloride Level 108 High 98-107 Creatinine 0.7 0.6-1.3 Eosinophils # (Auto) 0.12 0.0-0.5 Eosinophils (%) (Auto) 1.6 0.0-6.6 Glucose Screen 121 High 74-106 Hematocrit 37.3 36.0-46.1 Hemoglobin 12.6 11.6-15.8 Lymphocytes # (Auto) 1.53 Low 1.8-7.0 Lymphocytes (%) (Auto) 20.3 17.0-46.1 Mean Corpuscular Hemoglobin 29.1 25.9-32.7 Mean Corpuscular Hemoglobin Concent 33.8 30.8-34.3 Mean Corpuscular Volume 86.1 80.9-99.0 Mean Platelet Volume 9.9 8.9-12.4 Monocytes # (Auto) 0.53 0.3-0.9 Monocytes (%) (Auto) 7.0 4.3-13.2 Neutrophils # (Auto) 5.33 1.0-7.0 Neutrophils (%) (Auto) 70.8 40.4-72.8 Platelet Count 275 155-360 Potassium Level 4.0 3.5-5.1 RDW Coefficient of Variation 13.8 11.7-14.4 Red Blood Count 4.33 3.90-5.40 Red Cell Distribution Width 42.1 3-47 Sodium Level 138 136-145 Thyroid Stimulating Hormone (TSH) 1.25 0.36-3.74 White Blood Count 7.5 3.1-10.7 Laboratory test 12/26/2014 N2N/CCD Import Alanine Aminotransferase 26 12 -78 finding (Alt/SGPT) Albumin 3.6 3.4-5.0 Albumin/Globulin Ratio 0.8 Alkaline Phosphatase 112 45-117 Anion Gap 7 Low 8-16 Aspartate Amino Transf (Ast/Sgot) 13 Low 15-37 BUN/Creatinine Ratio 26.2 Blood Urea Nitrogen 21 High 7-18 Calcium Level 9.0 8.5-10.1 Carbon Dioxide Level 27 21-32 Chloride Level 103 98-107 Creatinine 0.8 0.6-1.3 Globulin 4.5 High 1.9-4.3 Glucose Screen 91 74-106 Hematocrit 39.4 36.0-46.1 Hemoglobin 13.4 11.6-15.8 Lipase 93 73-393 Mean Corpuscular Hemoglobin 29.8 25.9-32.7 Mean Corpuscular Hemoglobin Concent 34.0 30.8-34.3 Mean Corpuscular Volume 87.8 80.9-99.0 Mean Platelet Volume 10.4 8.9-12.4 Platelet Count 341 155-360 Potassium Level 3.8 3.5-5.1 RDW Coefficient of Variation 14.3 11.7-14.4 Red Blood Count 4.49 3.90-5.40 Sodium Level 137 136-145 Total Bilirubin 0.3 0.2-1.0 Total Protein 8.1 6.4-8.2 White Blood Count 7.2 3.1-10.7 Laboratory test finding 12/26/2014 N2N/CCD Import Urine Bacteria Few None Seen Urine Bilirubin Negative Negative Urine Blood Large High Negative Urine Clarity Clear Clear Urine Color Yellow Yellow Urine Epithelial Cells Many None Seen Urine Glucose (Ua) Negative Negative Urine Ketones Negative Negative Urine Leukocyte Esterase Small High Negative Urine Nitrite Negative Negative Urine Protein Negative Negative Urine Specific Tensed 1.020 1.010-1.030 Urine Urobilinogen 0.2 0.2-1.0 Urine pH 6.5 6.5-7.5 1 R10.9 2 Performed at: RN - [facility] [address] [id number] Claims Collector: Dang Preston MD, Phone: [phone] OPERATION/PROCEDURE Upper endoscopy DIAGNOSIS: PART 1: "SMALL BOWEL, DUODENUM, RANDOM BIOPSIES": - SMALL BOWEL MUCOSA WITH NORMAL VILLOUS ARCHITECTURE AND NO SIGNIFICANT ARCHITECTURAL ABNORMALITIES. - NO INFECTIOUS AGENTS OR VIRAL PATHOLOGIC CHANGES IDENTIFIED. PART 2: "ESOPHAGUS, BIOPSIES": - GASTROESOPHAGEAL TRANSITION ZONE MUCOSA WITH MILD REFLUX ESOPHAGITIS. - FOCAL GOBLET CELL/INTESTINAL METAPLASIA NOTED. - NO DYSPLASIA IDENTIFIED. - GASTRIC CARDIA-TYPE MUCOSA WITH HYPERPLASTIC CHANGES. FERNIE/cllazaro 1048 GROSS Received in formalin in two properly labeled containers with the patient's name and accession number. Part one is designated, "RANDOM DUODENAL BIOPSY". The specimen consists of several pieces of soft carter rubbery tissue measuring 0.6 x 0.4 x 0.4 cm. Submitted entirely, one cassette. Part two is designated, "ESOPHAGEAL BIOPSIES". The specimen consists of several pieces of soft carter, rubbery tissue measuring 0.6 x 0.4 x 0.4 cm. in aggregate. Submitted entirely, one cassette. /f PRE OPERATIVE DIAGNOSIS Abdominal pain and possible duodenal ulcers REVIEW CODE CODE: I Signed Electronically signed JASMYN BABB MD [id number] 4 FIRST MORNING SPECIMENS GENERALLY CONTAIN THE HIGHEST CONCENTRATION OF HCG AND ARE RECOMMENDED FOR EARLY DETECTION OF . 5 OPERATION/PROCEDURE Colonoscopy DIAGNOSIS: "COLON, RANDOM, BIOPSY": - BENIGN COLONIC MUCOSA WITH NO SIGNIFICANT PATHOLOGIC ABNORMALITIES. - NO EVIDENCE OF MICROSCOPIC COLITIS. /jhon 1107 GROSS Received in formalin in an appropriately labeled container with the patient' s name and accession number. The specimen is designated as "RANDOM COLON BIOPSIES" and consists of several pieces of soft carter rubbery tissue in aggregate measuring 0.8 x 0.6 x 0.4 cm. Entirely submitted in a single cassette. /jhon PRE OPERATIVE DIAGNOSIS Hematochezia; abd. pain REVIEW CODE CODE: I Signed Electronically signed Dayanna KEARNS MD 1153 Procedures Date Code Description Status 01/16/2018 03102 Eye Exam New Patient Comprehensive Completed 06/17/2015 47038 Endoscopy Small Intestine W/Biopsy Completed 06/16/2015 95960 Radiology, Finger(S), Two Views Completed 06/16/2015 20705 Radiology, Finger(S), Two Views Completed 06/16/2015 98060 Injection:Tendon Sheath,Lig. Cyst Completed 03/25/2015 69422 Colonoscopy With Biopsy Completed 03/25/2015 [id number] Colonoscopy Completed 12/29/2014 11373 Radiology, Foot, Complete-3 Views Completed 12/29/2014 61622 Radiology, Ankle Complete Completed 06/16/2014 62648 Anesthesia, Upper Abdomen Surgery Not Otherwise Spec Completed Encounters Type Date Location Provider Dx Diagnosis Office Visit 01/19/2016 10:30a Barney Macario MD K31.84 Gastroparesis K58.9 Irritable bowel syndrome without diarrhea Office Visit 12/29/2015 10:00a Barney Macario MD R10.9 Unspecified abdominal pain Office Visit 06/25/2015 9:30a Keila Shelton, K31.84 Gastroparesis PA-C K58.9 Irritable bowel syndrome without diarrhea K57.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, part unsp, 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 abscess w bleed R19.5 Other fecal abnormalities K21.9 Gastro-esophageal reflux disease without esophagitis Office Visit 06/16/2015 10:00a [facility] Jennifer Singh, M65.341 Trigger PA finger, right ring finger M19.041 Primary osteoarthritis, right hand Office Visit 06/09/2015 9:30a Keila Shelton K58.9 Irritable bowel PA-C syndrome without diarrhea K57.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, part unsp, w/o perf or abscess w bleed R19.5 Other fecal abnormalities K31.84 Gastroparesis K21.9 Gastro-esophageal reflux disease without esophagitis R93.3 Abnormal findings on dx imaging of prt digestive tract Office Visit 05/05/2015 11:00a REBEL Reyna Keila Arleen, K58.9 Irritable bowel PA-C syndrome without diarrhea K57.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, part unsp, w/o perf or abscess w bleed R19.5 Other fecal abnormalities K31.84 Gastroparesis K21.9 Gastro-esophageal reflux disease without esophagitis Office Visit 03/18/2015 10:00a REBEL Keila Reyna, R19.5 Other fecal abnormalities PA-C K31.84 Gastroparesis K21.9 Gastro-esophageal reflux disease without esophagitis K58.9 Irritable bowel syndrome without diarrhea Office Visit 02/19/2015 10:00a [facility] Danya Schmid M25.562 Pain in left S., [facility] knee Office Visit 12/29/2014 8:30a Orthopa[facility] Office Jero Mulligan, 719.47 Pain Joint M.D. Ankle & Foot Plan of Treatment Future Appointment(s):07/18/2018 10:00 am - Jennifer Singh PA at [facility]01/16/2018 - Barney Johnson MD53.143 Visual discomfort, bilateralComments: - in setting of vitreous syneresis- no sign of retinal tear or detachment- differential also includes ocular or acephalgic migraine- reviewed floaters, flashes, field cutsFollow up:please call with ? or concerns
--- OUTSIDE RECORDS SUMMARY | 2018-07-24 09:03 | XMS REPORT | Continuity of Care Document ---
:1965 External Reference #:[id number] Author Name Jennifer Singh PA Address [address] [place] [address] Care Team Providers Name Role Phone Aury Mota, CHEPE Care Team Information Avionics Electronics Technician Unavailable Aury Mota, HEAT TREATING OPERATOR Primary Care Physician Unavailable Payers Date Identification Numbers Payment Provider Subscriber Policy Number: [id number] [employer] Lillie Mcclellan PayID: [id number] [address] [place] [id number] Advance Directives Description No Information Available Problems Date Description Provider Status Onset: 03/17/2015 Gastroparesis syndrome Keila Reyna PA-C Active Note: GES September 2014 Onset: 03/17/2015 Irritable bowel syndrome Keila Reyna PA-C Active Note: [place] to TI Bx Mar 2015 Onset: 03/17/2015 [...] Jennifer Singh PA Active of the hand Onset: 07/18/2018 Derangement of knee Jennifer Singh PA Active Onset: 07/18/2018 Localized, primary osteoarthritis Jennifer Singh PA Active Family History Date Family Member(s) Observation Comments Father Non Contributory Mother Non Contributory Social History Type Date Description Comments Sex Unknown Marital Status Single Lives With Daughter Home Environment Lives with parents 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 Left-handed Tobacco Use Start: Unknown Never Smoked Cigarettes ETOH Use Denies alcohol use Recreational Drug Use Denies Drug Use Tobacco Use Start: Unknown Light tobacco smoker (10 or fewer cigarettes/day) Smoking Status Reviewed: 07/13/18 Light tobacco smoker (10 or fewer cigarettes/day) Allergies, Adverse Reactions, Alerts Description No Known Drug Allergies Medications Medication Date Status Form Strength Qnty SIG Indications Ordering Provider Pantoprazole 11/[address] 40mg 30tab 1 by mouth Chas s every day , MD Barney SM Loratadine 06/09 Active Tablets 10mg 1 po tid MD Andrea Metoclopramide 05/05 Active Tablets 10mg 120ta 1 by mouth K31.84 Melecio bs qac three Andrea, times a day MD and at hs One Daily For Active Tablets 1 by mouth Unknown Women /0000 every day Escitalopram Active Tablets 10mg Once Daily Unknown Oxalate Flonase Active Suspension 50mcg/Act 16uni 2 Times A Unknown /0000 ts Day Erythromycin Active Tablets 250mg 120ta take one Vat, bs tablet by carlos Mendez three MD times a day before a meal and at hs Proctosol HC 06/09 Hx Cream 2.5% 85.05 Apply to R19.5 gm anal area Cindy Mendez titrinidad prn 06/16 Aluminum-Magnesi 05/05 Hx Suspension 200-200-2 1080m use as K21.9 [place] um-Simethicone 0mg/5ML l directed Cindy Mendez MD 06/09 Golytely 03/18 Hx Solution 227.1gm 1unit drink 05/02 Rec s the jug the Andrea, - day before 04/20 (1 glass /2014 every 10 minutes), repeat and drink the other half the morning of the procedure Meloxicam 02/19 Hx Tablets 15mg 30tab 1 by mouth Pom s every day wili Nogueira, - food M.D. 06/09 Aluminum-Magnesi Hx Suspension 200-200-2 by [...] Tablets 5mg 1 tab by Unknown Chloride /0000 mouth daily - 05/05 Paroxetine HCL Hx Tablets 30mg 1 by mouth Unknown /0000 every day - 12/29 Sucralfate Hx Tablets 1gm 1 qd Unknown /0000 - 01/01 Escitalopram Hx Tablets 10mg 1 po qd Unknown Oxalate /0000 - 05/05 Amitriptyline Hx Tablets 10mg 1 po qd Unknown HCL / - 03/18 Anti-Gas Hx Unknown /0000 - 03/18 Loratadine Hx Tablets 10mg Unknown /0000 - 03/18 Probiotic /00 Hx Capsules prn Unknown Acidophilus /0000 - 06/09 Womans / Hx Capsules Unknown / - 03/18 Tylenol 00 Hx Tablets 325mg 2 po prn Unknown /0000 - 06/09 Loratadine 00/ Hx Tablets 10mg 2 Times A Unknown /0000 Day - 06/09 Ditropan XL Hx Tablets ER 10mg Once Daily Unknown / 24HR - 06/[address] 40mg 180ta take one Vatra, Sodium /0000 bs tablet by Andrea, - mouth twice MD 11/07 a Medications Administered in Office Medication Date Status Form Strength Qnty SIG Indications Ordering Provider Methylprednisolone 07/18 Administered Injection Francisco, acetate KAYLA Rodriguez (Depomedrol) 80mg injection Betamethasone 06/16 Administered Injection Francisco, Acetate & Sodium KAYLA Rodriguez Phosphate 3 MG Of Each Immunizations Description No Information Available Vital Signs Date Vital Result Comment 07/18/2018 10:06am BP Systolic 126 mmHg BP Diastolic 90 mmHg Body Temperature 97.0 F Heart Rate 101 /min Height 64 inches 5'4" Weight 247.00 lb BMI (Body Mass Index) 42.4 kg/m2 BSA (Body Surface Area) 2.14 m2 [place] body weight in kilograms 54 kg O2 % BldC Oximetry 97 % room air Pain Level 5 01/19/2016 10:40am BP Systolic Sitting Left Arm [...] H/L Range Note H. Pylori Stool 12/29/2015 [facility] H. Pylori Stool Negative N Negative 1, [address] [place] [address] [phone] @[facility] Pat Id: [id number] @[facility] Req #: [id number] Laboratory 06/17/2015 [facility] Esophageal Biopsy See Note 3 test finding [address] [place] [address] [phone] Laboratory 06/17/2015 [facility] Urine HCG NEGATIVE Negative 4 test finding [address] (Qualitative) [place] [address] [phone] Laboratory 03/25/2015 [facility] Polyp Colon And/Or See Note 5 test finding [address] [place] [address] [phone] Laboratory 03/20/2015 N2N/CCD Import Alanine 28 12-78 [...] Negative Urine Protein Negative Negative Urine Specific [place] 1.020 1.010-1.030 Urine Urobilinogen 0.2 0.2-1.0 Urine pH 6.5 6.5-7.5 1 R10.9 2 Performed at: RN - [facility] [address] [id number] Binder Cutter: Dang Preston MD, Phone: [phone] 3 OPERATION/PROCEDURE Upper endoscopy DIAGNOSIS: PART 1: [...] - GASTRIC CARDIA-TYPE MUCOSA WITH HYPERPLASTIC CHANGES. /clf 1048 GROSS Received in formalin in two [...] cm. in aggregate. Submitted entirely, one cassette. /clf PRE OPERATIVE DIAGNOSIS Abdominal pain and possible duodenal ulcers REVIEW CODE CODE: I Signed Electronically signed JASMYN BABB MD 1129 4 FIRST MORNING SPECIMENS GENERALLY CONTAIN THE HIGHEST CONCENTRATION OF HCG AND ARE RECOMMENDED FOR EARLY DETECTION OF . 5 OPERATION/PROCEDURE Colonoscopy DIAGNOSIS: "COLON, RANDOM, BIOPSY": - BENIGN COLONIC MUCOSA WITH NO SIGNIFICANT PATHOLOGIC ABNORMALITIES. - NO EVIDENCE OF MICROSCOPIC COLITIS. EP/jhon 1107 GROSS Received in formalin in an [...] MD 1153 Procedures Date Code Description Status 07/18/201878175 Asp./Injection major joint Completed 01/16/2018 13737 Eye Exam New Patient Comprehensive Completed 06/17/2015 18016 Endoscopy Small Intestine W/Biopsy Completed 06/16/2015 09848 Radiology, Finger(S), Two Views Completed 06/16/2015 25282 Radiology, Finger(S), Two Views Completed 06/16/2015 26150 Injection:Tendon Sheath,Lig. Cyst Completed 03/25/2015 27044 Colonoscopy With Biopsy Completed 03/25/2015 06095657 Colonoscopy Completed 12/29/2014 87512 Radiology, Foot, Complete-3 Views Completed 12/29/2014 60081 Radiology, Ankle Complete Completed 06/16/2014 38888 Anesthesia, Upper Abdomen Surgery Not Otherwise Spec Completed Encounters Type Date Location Provider Dx Diagnosis Office Visit 07/18/2018 Orthopaedic Office Jennifer Singh, M17.11 Unilateral primary 10:00a PA osteoarthritis, right knee M23.8x1 Other internal derangements of right knee Office Visit 01/19/2016 10:30a Barney Macario MD [...] prt digestive tract Office Visit 05/05/2015 11:00a Keila Shelton K58.9 Irritable bowel PA-C syndrome without diarrhea K57.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 Ankle & Foot Plan of Treatment 07/18/2018 - Jennifer Singh, PAM17.11 Unilateral primary osteoarthritis, right kneeComments:I explained that there is definitely some arthritis in the right knee and that I think the majority of her pain is coming from this. I explained there is possibility of a meniscus tear but at this time I recommend treatment for the arthritis since she has not really done much. She cannot take NSAIDsdue to stomach pain. I have recommended a steroid injection, hinged knee brace which was provided.She does wish to proceed with the injection. Verbal consent was obtained for a right knee injection. Patient was injected today into the right knee with 80 mg Depo-Medrol and 6 cc of 0.5% Marcaine after sterile prep with chlorhexidine. Patient tolerated the injection well and was dressed with a Band-Aid.M23.8x1 Other internal derangements of right kneeNew Therapy:Physical TherapyAllFollow up:1 MONTH
[2018-07-24 09:14] VITALS: BP 121/71
--- NOTE | 2018-07-24 09:26 | UC ---
Throat Pain/Nasal Renato HPI - HPI Summary HPI Summary: sore throat x 2 days no fever, no chills, nasal congestion , no runny nose, no cough - History of Current Complaint Chief Complaint: UCEar Stated Complaint: EAR PAIN Time Seen by Provider: 07/24/18 09:18 Hx Obtained From: Patient Hx Last Menstrual Period: 3RD WK IN ?: No Onset/Duration: Gradual Onset, Lasting Days - 2, Still Present Severity: Moderate Pain Intensity: 8 Cough: None Associated Signs & Symptoms: Negative: Drooling, Wheezing, Hoarseness, Sinus Discomfort, Nasal Discharge, Fever, Vomiting, Rash - Allergies/Home Medications Allergies/Adverse Reactions: Allergies Allergy/AdvReac Type Severity Reaction Status Date / Time bee venom protein (honey bee) Allergy Headache Verified 07/24/18 09:09 ibuprofen Allergy Vomiting Verified 07/24/18 09:09 Home Medications: Home Medications Amitriptyline TAB* [Elavil TAB*] 25 mg PO BEDTIME 07/24/18 [History Confirmed ] Fluticasone NASAL SPRAY 50MCG* [Flonase NASAL SPRAY 50MCG*] 1 spray BOTH NARES BID 07/24/18 [History Confirmed 07/24/18] Lansoprazole CAP (NF) [Prevacid CAP (NF)] 30 mg PO QAM 07/24/18 [History Confirmed 07/24/18] Naproxen TAB* [Naprosyn 250 mg TAB*] 500 mg PO BID PRN 07/24/18 [History Confirmed 07/24/18] Oxybutynin TAB* [Ditropan TAB*] 5 mg PO DAILY 07/24/18 [History Confirmed ] Ranitidine TAB (NF) [Zantac TAB (NF)] 150 mg PO BID 07/24/18 [History Confirmed 07/24/18] Tolterodine LA (NF) [Detrol LA (NF)] 4 mg PO DAILY 07/24/18 [History Confirmed 07/24/18] hydroCHLOROthiazide [Hydrochlorothiazide] 12.5 mg PO DAILY 07/24/18 [History Confirmed 07/24/18] PMH/Surg Hx/FS Hx/Imm Hx - Additional Past Medical History Additional PMH: Allergies, Arthritis, GERD, Kidney Stones Other History Of: Negative For: HIV, Hepatitis B, Hepatitis C, Anticoagulant Therapy - Surgical History Surgical History: Yes Surgery Procedure, Year, and Place: 09/08/14--ENDOSCOPY. 06/19/14-- CHOLECYSTECTOMY. COLONOSCOPY 2016. [facility] Other Surgical History: cholecystectomy 06/2014, no other abd surgeries - Family History Known Family History: Positive: None - states parents living and healthy, Other - Denies FMH of HTN Negative: Cardiac Disease, Hypertension, Diabetes - Social History Alcohol Use: Occasionally Alcohol Amount: 1/WEEK Substance Use Type: None Substance Use Comment - Amount & Last Used: xanax Smoking Status (MU): Light Every Day Tobacco Smoker Type: Cigarettes Amount Used/How Often: 05/10 PPD Length of Time of Smoking/Using Tobacco: Since Age 52 Have You Smoked in the Last Year: Yes When Did the Patient Quit Smoking/Using Tobacco: 06/2017 - Immunization History Most Recent Influenza Vaccination: 01/2015 Most Recent Tetanus Shot: 08/19/16 Vaccination Up to Date: Yes Review of Systems All Other Systems Reviewed And Are Negative: Yes Constitutional: Positive: Negative Skin: Positive: Negative Eyes: Positive: Negative ENT: Positive: Sore Throat, Sinus Congestion Respiratory: Positive: Negative Cardiovascular: Positive: Negative Is Patient Immunocompromised?: No Physical Exam Triage Information Reviewed: Yes Appearance: Well-Appearing, No Pain Distress, Well-Nourished Vital Signs: Initial Vital Signs Temp 99.2 F 07/24/18 09:07 Pulse 110 07/24/18 09:07 Resp 20 07/24/18 09:07 BP 121/71 07/24/18 09:07 Pulse Ox 100 07/24/18 09:07 Vital Signs Reviewed: Yes Eye Exam: Normal Eyes: Positive: Conjunctiva Clear ENT: Positive: Normal ENT inspection, Hearing grossly normal, Pharyngeal erythema, Tonsillar swelling, Tonsillar exudate. Negative: Nasal congestion, Nasal drainage, TMs normal Neck: Positive: Supple, Nontender, No Lymphadenopathy Respiratory: Positive: Chest non-tender, Lungs clear, Normal breath sounds Cardiovascular: Positive: No Murmur, Pulses Normal, Tachycardia Skin Exam: Normal Throat Pain/Nasal Course/Dx - Differential Dx/Diagnosis Provider Diagnosis: Pharyngitis Discharge - Sign-Out/Discharge Documenting (check all that apply): Patient Departure All imaging exams completed and their final reports reviewed: No Studies - Discharge Plan Condition: Stable Disposition: HOME Prescriptions: Amoxicillin PO (*) [Amoxicillin 875 MG (*)] 875 mg PO BID #20 tab Patient Education Materials: Pharyngitis (ED) Referrals: Aury Mota [Primary Care Provider] - If Needed - Billing Disposition and Condition Condition: STABLE Disposition: Home
== END 2018-07-24 09:32 | disposition home or self-care (01) ==
LOC: UCCORT 08:55
DX: J02.9 Acute pharyngitis, unspecified (principal); F17.210 Nicotine dependence, cigarettes, uncomplicated; K21.9 Gastro-esophageal reflux disease without esophagitis; Z79.899 Other long term (current) drug therapy; Z88.8 Allergy status to other drugs, medicaments and biological substances; Z91.030 Bee allergy status
CPT/HCPCS: 99212; G0463

== ENCOUNTER 2019-05-15 15:53 | Emergency (ER) | payer OTHER ==
--- OUTSIDE RECORDS SUMMARY | 2019-05-15 16:35 | XMS REPORT | Continuity of Care Document ---
:1965 External Reference #:[id number] Author Name Araceli Yancey MD Address [address] [place] [address] Care Team Providers Name Role Phone Aury Mota NP - Family Care Team Information Banking Consultant Problems Active Problems Provider Date Gastroparesis syndrome Keila Reyna PA-C Onset: 03/17/2015 Note: GES September 2014 Irritable bowel syndrome Keila Reyna PA-C Onset: 03/17/2015 Note: [place] to TI Bx Mar 2015 Anxiety Keila Reyna PA-C Onset: 03/17/2015 Gastroesophageal reflux disease Keila Reyna PA-C Onset: 03/17/2015 Note: upper to D3 Bx 2015 Obesity Keila Reyna PA-C Onset: 03/17/2015 Adult health examination Keila Reyna PA-C Onset: 03/17/2015 Note: PCP Dr. Ty (KAYLA Medina) Diverticular disease of colon Keila Reyna PA-C Onset: 04/13/2015 Acquired trigger finger Jennifer Singh PA Onset: 06/16/2015 Localized, primary osteoarthritis of the Jennifer Singh PA Onset: 06/16/2015 hand Derangement of knee Jennifer Singh PA Onset: 07/18/2018 Localized, primary osteoarthritis Jennifer Singh PA Onset: 07/18/2018 Social History Type Date Description Comments Sex Unknown Tobacco Use Start: Unknown Patient is a current cigarette smoker, smokes some days Smoking Status Reviewed: 05/10/19 Patient is a current cigarette smoker, smokes some days ETOH Use Denies alcohol use Recreational Drug Use Denies Drug Use Tobacco Use Start: Unknown Light tobacco smoker (10 Doesn't smoke daily or fewer cigarettes/day) Allergies, Adverse Reactions, Alerts Description No Known Drug Allergies Medications Active Medications SIG Qnty Indications Ordering Date Provider Pantoprazole Sodium 1 by mouth every 30tabs Barney Doherty, 11/07/[address] KNIGHT Loratadine 1 po tid MelecioIliana chamberlainn, 06/09/2015 10mg MD Tablets One Daily For Women 1 by mouth every Unknown day Tablets Flonase 2 Times A Day 16units Unknown 50mcg/Act Suspension Ranitidine HCL 1 tab by mouth 60caps Le, Aury 150mg twice a day Maite, CHIEF TECHNICIAN Capsules Amitriptyline HCL 1 tab by mouth 30tabs Le, Aury 100mg every day at Maite, CHIEF TECHNICIAN Tablets bedtime until gone then d/c Mucinex 1 tab by mouth 30tabs Le, Aury 600mg Tablets twice a day Maite, CHIEF TECHNICIAN ER 12HR Metformin HCL ER 1 tab by mouth 60tabs Le, Aury 500mg every day with Maite, CHIEF TECHNICIAN Tablets ER 24HR dinner Sucralfate 1 tab by mouth 120tabs Le, Aury 1gm Tablets four times a day Maite, CHIEF TECHNICIAN as needed Amitriptyline HCL 1 tab by mouth 30tabs Le, Aury 75mg every day at Maite, CHIEF TECHNICIAN Tablets bedtime Begin once 100 mg is gone Lansoprazole 1 cap by mouth 30caps Ira Byrne MD 30mg 1/[address] breakfast Medications Administered in Office Medication SIG Qnty Indications Ordering Provider Date Depomedrol 40mg/1cc Araceli Yancey MD 01/22/2019 (methylprednisolone acetate) Injection Methylprednisolone acetate Jennifer Singh PA 07/18/2018 (Depomedrol) 80mg injection Injection Betamethasone Acetate & Sodium Jennifer Singh PA 06/16/2015 Phosphate 3 MG Of Each Injection Immunizations Description No Information Available Vital Signs Date Vital Result Comment 05/10/2019 11:06am BP Systolic Sitting Left Arm 123 mmHg BP Diastolic Sitting Left Arm 83 mmHg Heart Rate 105 /min 03/07/2019 9:33am BP Systolic 116 mmHg BP Diastolic 80 mmHg Results Test Acquired Date Facility Test Result H/L Range Note Xray 05/10/2019 [facility] - Orthopedic RMP, Hand, LT, < pending> [address] Complete (min [address] [place] [address] view) [phone] RMP, Knee, RT, Ap, lat & sunrise (3 view) <pending> Procedures Date Code Description Status 05/10/2019 23291 Radiology, Knee 3 Views Completed 05/10/2019 37504 Radiology, Hand: Minimum Three Views Completed 03/07/2019 31196 Radiology, Foot, Complete-3 Views Completed 03/04/2019 04723 Eye Exam Est Patient Comprehensive Completed 01/22/2019 54733 Radiology, Knee 3 Views Completed 01/22/2019 26620 Asp./Injection major joint Completed 03/25/2015 66203109 Colonoscopy Completed Medical Devices Description No Information Available Encounters Type Date Location Provider Dx Diagnosis Office Visit 05/10/2019 Orthopaedic Office Aarceli Yancey M79.642 Pain in left hand 11:00a M25.561 Pain in right knee M17.11 Unilateral primary osteoarthritis, right knee S63.639A Sprain of interphalangeal joint of unsp finger, init encntr Office Visit 03/07/2019 9:15a Orthopaedic Office Araceli Yacney M79.672 Pain in MD left foot R22.42 Localized swelling, mass and lump, left lower limb M84.375A Stress fracture, left foot, initial encounter for fracture Office Visit 01/22/2019 9:30a Orthopaedic Office Araceli Yancey M25.561 Pain in right knee M17.11 Unilateral primary osteoarthritis, right knee S83.231D Complex tear of medial mensc, current injury, r knee, subs W18.39xA Other fall on same level, initial encounter Office Visit 01/03/2019 Joce Davis7.11 Unilateral primary 10:30a Office MD Araceli osteoarthritis, right knee R20.0 Anesthesia of skin S83.231D Complex tear of medial mensc, current injury, r knee, subs Assessments Date Code Description Provider 05/10/2019 Chris79.642 Pain in left hand Araceli Yancey MD 05/10/2019 M25.561 Pain in right knee Araceli Yancey MD 05/10/2019 M17.11 Unilateral primary osteoarthritis, right knee Araceli Yancey MD 05/10/2019 S63.639A Sprain of interphalangeal joint of unspecified Araceli Yancey MD finger, initial encounter 03/07/2019 M79.672 Pain in left foot Araceli Yancey MD 03/07/2019 R22.42 Localized swelling, mass and lump, left lower Araceli Yancey MD limb 03/07/2019 M84.375A Stress fracture, left foot, initial encounter Araceli Yancey MD for fracture 03/04/2019 H04.123 Dry eye syndrome of bilateral lacrimal glands Barney Johnson MD 01/22/2019 M25.561 Pain in right knee Araceli Yancey MD 01/22/2019 M17.11 Unilateral primary osteoarthritis, right knee Araceli Yancey MD 01/22/2019 S83.231D Complex tear of medial meniscus, Araceli Beal MD injury, right knee, 01/22/2019 W18.39xA Other fall on same level, initial encounter Araceli Yancey MD 01/03/2019 M17.11 Unilateral primary osteoarthritis, right knee Araceli Yancey MD 01/03/2019 R20.0 Anesthesia of skin Araceli Yancey MD 01/03/2019 S83.231D Complex tear of medial meniscus, Araceli Beal MD injury, right knee, 11/14/2018 M17.11 Unilateral primary osteoarthritis, right knee Araceli Yancey MD 11/14/2018 S83.231D Complex tear of medial meniscus, Araceli Beal MD injury, right knee, Plan of Treatment No Information Available Functional Status Description No Information Available Mental Status Description No Information Available Referrals Description No Information Available
[2019-05-15 16:41] VITALS: BP 126/73
--- NOTE | 2019-05-15 17:23 | UC ---
Hand/Wrist HPI - HPI Summary HPI Summary: 54-year-old female who went to lift something and her left wrist was bent backwards and she complains of pain to that area since then. She has been wearing a wrist splint. - History Of Current Complaint Chief Complaint: UCUpperExtremity Stated Complaint: LT WRIST INJURY Time Seen by Provider: 05/15/19 16:46 Hx Obtained From: Patient Hx Last Menstrual Period: 3RD WK IN ?: No Onset/Duration: Sudden Onset, Lasting Days Severity Initially: Moderate Severity Currently: Moderate Pain Intensity: 9 Character Of Pain: Dull, Aching Aggravating Factor(s): Movement, Flexion, Extension Alleviating Factor(s): Rest Associated Signs And Symptoms: Positive: Negative - Allergies/Home Medications Allergies/Adverse Reactions: Allergies Allergy/AdvReac Type Severity Reaction Status Date / Time bee venom protein (honey bee) Allergy Headache Verified 05/15/19 16:41 ibuprofen Allergy Vomiting Verified 05/15/19 16:41 Home Medications: Home Medications Loratadine 10 mg PO DAILY 05/15/19 [History Confirmed 05/15/19] PMH/Surg Hx/FS Hx/Imm Hx Previously Healthy: Yes Other History Of: Negative For: HIV, Hepatitis B, Hepatitis C, Anticoagulant Therapy - Surgical History Surgical History: Yes Surgery Procedure, Year, and Place: 09/08/14--ENDOSCOPY. 06/19/14-- CHOLECYSTECTOMY. COLONOSCOPY 2016. BLADDER SLING. meniscus surgery 2019 Other Surgical History: cholecystectomy 06/2014, no other abd surgeries - Family History Known Family History: Positive: None - states parents living and healthy, Other - Denies FMH of HTN Negative: Cardiac Disease, Hypertension, Diabetes - Social History Alcohol Use: Weekly Alcohol Amount: 1/WEEK Substance Use Type: None Substance Use Comment - Amount & Last Used: xanax Smoking Status (MU): Former Smoker Type: Cigarettes Amount Used/How Often: 1/10 PPD Length of Time of Smoking/Using Tobacco: Since Age 52 Have You Smoked in the Last Year: Yes When Did the Patient Quit Smoking/Using Tobacco: 06/2017 - Immunization History Most Recent Influenza Vaccination: 01/2015 Most Recent Tetanus Shot: 08/19/16 Vaccination Up to Date: Yes Review of Systems All Other Systems Reviewed And Are Negative: Yes Musculoskeletal: Positive: Other: - Pain left wrist mostly with flexion and extension. Physical Exam Triage Information Reviewed: Yes Appearance: Well-Appearing, No Pain Distress, Well-Nourished Vital Signs: Initial Vital Signs Temp 97.2 F 05/15/19 16:37 Pulse 104 05/15/19 16:37 Resp 16 05/15/19 16:37 BP 126/73 05/15/19 16:37 Pulse Ox 97 05/15/19 16:37 Vital Signs Reviewed: Yes Musculoskeletal: Positive: Strength Intact, ROM Intact, No Edema, Other: - Good peripheral pulses neuro sensation capillary refill, full range of motion but with pain at the wrist. Navicular is nontender. Good finger strength to flexion extension against resistance. No erythema, deformity, bruising or swelling is noted Neurological Exam: Normal Psychological Exam: Normal Skin Exam: Normal Hand/Wrist Course/Dx - Course Course Of Treatment: Left wrist x-ray:Indication: Left hand pain. 4 views of the left hand demonstrates degenerative changes of the proximal and distal interphalangeal joints of the second through fifth digits. IMPRESSION: Degenerative changes of the proximal and distal interphalangeal joints of the second through fifth digits. The patient is comfortable here and nontoxic. She can do need to wear her wrist splint. She is to apply heat to the sore area and follow-up with the orthopedist as needed if no improvement in 3 or 4 days. - Differential Dx/Diagnosis Provider Diagnosis: Left wrist pain Discharge ED - Sign-Out/Discharge Documenting (check all that apply): Patient Departure All imaging exams completed and their final reports reviewed: Yes - Discharge Plan Condition: Good Disposition: HOME Patient Education Materials: Wrist Sprain (ED) Referrals: Eufemia Bella MD [Medical Doctor] - Anna Flores PA [Primary Care Provider] - Additional Instructions: Elevate as much as possible, keep the wrist splint on for comfort. Definite follow-up with the orthopedist if continued pain in 4 or 5 days. Avoid movements that cause pain. - Billing Disposition and Condition Condition: GOOD Disposition: Home
== END 2019-05-15 17:31 | disposition home or self-care (01) ==
LOC: UCCORT 15:53
DX: M25.532 Pain in left wrist (principal); M19.042 Primary osteoarthritis, left hand; Z87.891 Personal history of nicotine dependence; X50.9XXA Other and unspecified overexertion or strenuous movements or postures, initial encounter; Y93.9 Activity, unspecified; Y92.9 Unspecified place or not applicable; Z91.030 Bee allergy status; Z88.6 Allergy status to analgesic agent
CPT/HCPCS: 99212; G0463

== ENCOUNTER 2019-06-24 11:20 | Emergency (ER) | payer OTHER ==
--- OUTSIDE RECORDS SUMMARY | 2019-06-24 12:35 | XMS REPORT | Continuity of Care Document ---
:1965 External Reference #:[id number] Author Name Araceli Yancey MD Address [address] [place] [id number] Care Team Providers Name Role Phone Anna Flores PA - Physician Care Team Information [employer] Portfolio Assistant Problems Active Problems Provider Date Gastroparesis syndrome Keila Reyna PA-C Onset: 03/17/2015 Note: [facility] September 2014 Irritable bowel syndrome Keila Reyna PA-C Onset: 03/17/2015 Note: [place] to TI Bx Mar 2015 Anxiety Keila Reyna PA-C Onset: 03/17/2015 Gastroesophageal reflux disease Keila Reyna PA-C Onset: 03/17/2015 Note: upper to D3 Bx 2015 Obesity Keila Reyna PA-C Onset: 03/17/2015 Adult health examination Keila Reyna PA-C Onset: 03/17/2015 Note: PCP Dr. yT (KAYLA Medina) Diverticular disease of colon Keila Reyna PA-C Onset: 04/13/2015 Acquired trigger finger Jennifer Singh PA Onset: 06/16/2015 Localized, primary osteoarthritis of the Jennifer Singh PA Onset: 06/16/2015 hand Localized, primary osteoarthritis Jennifer Singh PA Onset: 07/18/2018 Derangement of knee Jennifer Singh PA Onset: 07/18/2018 Social History Type Date Description Comments Sex Unknown Tobacco Use Start: Unknown Patient is a current cigarette smoker, smokes some days Smoking Status Reviewed: 05/27/19 Patient is a current cigarette smoker, smokes [...] Tablets DR KNIGHT Loratadine 1 po tid Andrea Leiva, 06/09/2015 10mg Tablets One Daily For Women 1 by mouth every Unknown day Tablets Flonase 2 Times A Day 16units Unknown 50mcg/Act Suspension Ranitidine HCL 1 tab by mouth 60caps Le, Aury 150mg twice a day [place], PLAN EXAMINER Capsules Amitriptyline HCL 1 tab by mouth 30tabs Le, Aury 100mg every day at [place], PLAN EXAMINER Tablets bedtime until gone then d/c Mucinex 1 tab by mouth 30tabs Le, Aury 600mg Tablets twice a day [place], PLAN EXAMINER ER 12HR Metformin HCL ER 1 tab by mouth 60tabs Le, Aury 500mg every day with [place], PLAN EXAMINER Tablets ER 24HR dinner Sucralfate 1 tab by mouth 120tabs Le, Aury 1gm Tablets four times a day [place] PLAN EXAMINER as needed Amitriptyline HCL 1 tab by mouth 30tabs Le, Aury 75mg every day at [place], PLAN EXAMINER Tablets bedtime Begin once 100 mg is gone Lansoprazole 1 cap by mouth 30caps Ira Byrne MD 30mg 1/[address] breakfast Tylenol Extra 2 tabs by mouth Unknown Strength every 4 hours as 500mg Tablets needed for pain Medications Administered in Office Medication SIG Qnty Indications Ordering Provider Date Depomedrol 40mg/1cc Araceli Yancey MD 01/22/2019 (methylprednisolone acetate) Injection Methylprednisolone acetate Jennifer Singh PA 07/18/2018 (Depomedrol) 80mg injection Injection Betamethasone Acetate & Sodium Jennifer Singh PA 06/16/2015 Phosphate 3 MG Of Each Injection Immunizations Description No Information Available Vital Signs Date Vital Result Comment 05/27/2019 1:01pm BP Systolic 143 mmHg BP Diastolic 108 mmHg Body Temperature 97.8 F Heart Rate 102 /min Weight 265.00 lb O2 % BldC Oximetry 95 % 05/10/2019 11:06am BP Systolic Sitting Left Arm 123 mmHg BP Diastolic Sitting Left Arm 83 mmHg Heart Rate 105 /min Results Test Acquired Date Facility Test Result H/L Range Note Xray 05/27/2019 [facility] - Orthopedic RMP, Knee, RT, Ap, < pending> [address] [facility] ([address] [place] [phone] view) [phone] Procedures Date Code Description Status 05/27/2019 08488 Radiology, Knee 3 Views Completed 05/10/2019 17311 Radiology, Knee 3 Views Completed 05/10/2019 82284 Radiology, Hand: Minimum Three Views Completed 03/07/2019 10145 Radiology, Foot, Complete-3 Views Completed 03/04/2019 11051 Eye Exam Est Patient Comprehensive Completed 01/22/2019 65044 Radiology, Knee 3 Views Completed 01/22/2019 81472 Asp./Injection major joint Completed 03/25/2015 47169153 Colonoscopy Completed Medical Devices Description No Information Available Encounters Type Date Location Provider Dx Diagnosis Office Visit 05/27/2019 Orthopaedic Office Araceli Yancey, M25.561 Pain in right 1:00p MD knee M17.11 Unilateral primary osteoarthritis, right knee Office Visit 05/10/2019 11:00a Orthopaedic Office Araceli Yancey, M79.642 Pain in MD left hand M25.561 Pain in right knee M17.11 Unilateral primary osteoarthritis, right knee S63.635A Sprain of interphalangeal joint of left ring finger, init W22.8xxA Striking against or struck by other objects, init encntr Office Visit 03/07/2019 9:15a Orthopaedic Office Araceli Yancey, M79.672 Pain in MD left foot R22.42 Localized swelling, mass and lump, left lower limb M84.375A Stress fracture, left foot, initial encounter for fracture Office Visit 01/22/2019 9:30a Orthopaedic Office Araceli Yancey M25.561 Pain in MD right knee M17.11 Unilateral primary osteoarthritis, right knee S83.231D Complex tear of medial mensc, current injury, r knee, subs W18.39xA Other fall on same level, initial encounter Office Visit 01/03/2019 Orthopaedic Naye, M17.11 Unilateral primary 10:30a Office MD Araceli osteoarthritis, right knee R20.0 Anesthesia of skin S83.231D Complex tear of medial mensc, current injury, r knee, subs Assessments Date Code Description Provider 05/27/2019 M25.561 Pain in right knee Araceli Yancey MD 05/27/2019 M17.11 Unilateral primary osteoarthritis, right knee Araceli Yancey MD 05/10/2019 M79.642 Pain in left hand Araceli Yancey MD 05/10/2019 M25.561 Pain in right knee Araceli Yancey MD 05/10/2019 M17.11 Unilateral primary osteoarthritis, right knee Araceli Yancey MD 05/10/2019 S63.635A Sprain of interphalangeal joint of left ring Araceli Yancey MD finger, initial encounter 05/10/2019 W22.8xxA Striking against or struck by other objects, Araceli Yancey MD initial encounter 03/07/2019 M79.672 Pain in left [...] 01/22/2019 S83.231D Complex tear of medial meniscus, current Araceli Yancey MD injury, right knee, 01/22/2019 W18.39xA Other [...]
--- OUTSIDE RECORDS SUMMARY | 2019-06-24 12:35 | XMS REPORT | Continuity of Care Document ---
:1965 External Reference #:[id number] Author Name Vince You MD (transmitted by agent of provider Gerald Montoya) Address [address] [place] [id number] Care Team Providers Name Role Phone Kristie Willoughby MD - Internal Care Team Information Load Planner [phone] Medicine [facility] [place] - Care Team Information Load Planner [phone] Clinic/Center Anna Flores - Medical Care Team Information Load Planner [phone] Problems Description No Information Available Social History Type Date Description Comments Sex Unknown Tobacco Use Start: Unknown Never Smoked Cigarettes ETOH Use Denies alcohol use Recreational Drug Use Denies Drug Use Tobacco Use Start: Unknown Light tobacco smoker (10 or fewer 1 a day cigarettes/day) Smoking Status Reviewed: 05/21/19 Light tobacco smoker (10 or fewer 1 a day cigarettes/day) Exercise Type/Frequency Exercises sporadically Allergies, Adverse Reactions, Alerts Active Allergies Reaction Severity Comments Date NKDA 04/15/2014 Bee Sting 02/12/2016 Environmental Allergies 05/21/2019 Medications Active Medications SIG Qnty Indications Ordering Date Provider Amitriptyline HCL 1 po qday Unknown 10mg Tablets Escitalopram Oxalate 1 po qday Linette-Horace, 10mg Tablets CHEPE Mcdaniel Erythromycin Base 1 po qday Unknown 250mg Tablets Pantoprazole Sodium 1 po qday Andrea Leiva, 40mg Tablets DR KRUSE Cetirizine HCL 1 po qday Scarseth, 10mg Tablets CHEPE James Lorata-Fady D Linette-Horace, 10-240mg Tablets CHEPE Mcdaniel ER 24HR Multivitamins 1 by mouth Unknown Capsules every day Hydrochlorothiazide 1 by mouth Unknown 12.5mg Capsules every day Fluticasone Propionate 2 sprays each Unknown 50mcg/Act nostril qd. Suspension Sucralfate take one tablet Unknown 1gm Tablets by mouth four times a day Metformin HCL 1 by mouth Unknown 500mg/5ML Solution every day with dinner Mucus Relief ER 12 Hour Unknown Maximum Strength 1200mg Tablets ER 12HR Medications Administered in Office Medication SIG Qnty Indications Ordering Provider Date Celestone 3 mg and 3mg Vince You MD 05/21/2019 Injection Depomedrol 40MG Vince You MD 02/12/2016 Injection Immunizations Description No Information Available Vital Signs Date Vital Result Comment 05/21/2019 9:30am Height 64.5 inches 5'4.50" Weight 263.00 lb Heart Rate 104 /min Respiratory Rate 18 /min BMI (Body Mass Index) 44.4 kg/m2 02/12/2016 11:06am Height 64 inches 5'4" Weight 232.00 lb Heart Rate 100 /min BP Systolic 122 mmHg BP Diastolic 76 mmHg Pain Level 5 BMI (Body Mass Index) 39.8 kg/m2 Results Description No Information Available Procedures Date Code Description Status 05/21/2019 16175 Inject Tendon Sheath Or Ligament Aponeurosis Eg Plantar Completed Fascia Medical Devices Description No Information Available Encounters Description No Information Available Assessments Date Code Description Provider 05/21/2019 M65.4 Radial styloid tenosynovitis [de Quervain] Vince You MD Plan of Treatment 05/21/2019 - Vince You, MDM65.4 Radial styloid tenosynovitis [de Quervain] Comments:ice/elevate , use brace , home exercises sheetsFollow up:Follow up: As needed Functional Status Description No Information Available Mental Status Description No Information Available Referrals Description No Information Available
[2019-06-24 12:47] VITALS: BP 132/66
--- NOTE | 2019-06-24 13:02 | UC ---
Hand/Wrist HPI - HPI Summary HPI Summary: 54 year old with hand complaint. Left hand pain, bruising and tenderness started Monday night. She was lifting laundry up from the floor and felt something "lock and then pull." now some bruising in the hand and pain with movement and improved with rest and APAP and no APAP today and would like some [ End ] - History Of Current Complaint Chief Complaint: UCUpperExtremity Stated Complaint: LT HAND ISSUES Time Seen by Provider: 06/24/19 13:00 Hx Obtained From: Patient Hx Last Menstrual Period: 3RD WK IN Onset/Duration: Sudden Onset Pain Intensity: 8 Alleviating Factor(s): Rest, OTC Meds Associated Signs And Symptoms: Positive: Bruising - Allergies/Home Medications Allergies/Adverse Reactions: Allergies Allergy/AdvReac Type Severity Reaction Status Date / Time bee venom protein (honey bee) Allergy Headache Verified 06/24/19 12:42 ibuprofen Allergy Vomiting Verified 06/24/19 12:42 Home Medications: Home Medications Multivitamins/Minerals TAB* [Thera M Plus TAB*] 1 tab PO DAILY 02/04/15 [ History Confirmed 06/24/19] Amitriptyline TAB* [Elavil TAB*] 25 mg PO BEDTIME 07/24/18 [History Confirmed ] Fluticasone NASAL SPRAY 50MCG* [Flonase NASAL SPRAY 50MCG*] 1 spray BOTH NARES BID 07/24/18 [History Confirmed 06/24/19] Lansoprazole CAP (NF) [Prevacid CAP (NF)] 30 mg PO QAM 07/24/18 [History Confirmed 06/24/19] Naproxen TAB* [Naprosyn 250 mg TAB*] 500 mg PO BID PRN 07/24/18 [History Confirmed 06/24/19] Tolterodine LA (NF) [Detrol LA (NF)] 4 mg PO DAILY 07/24/18 [History Confirmed 06/24/19] hydroCHLOROthiazide [Hydrochlorothiazide] 12.5 mg PO DAILY 07/24/18 [History Confirmed 06/24/19] Loratadine 10 mg PO DAILY 05/15/19 [History Confirmed 06/24/19] PMH/Surg Hx/FS Hx/Imm Hx Previously Healthy: Yes GI/ History: Gastroesophageal Reflux Other History Of: Negative For: HIV, Hepatitis B, Hepatitis C, Anticoagulant Therapy - Surgical History Surgical History: Yes Surgery Procedure, Year, and Place: 09/08/14--ENDOSCOPY. 06/19/14-- CHOLECYSTECTOMY. COLONOSCOPY 2016. BLADDER SLING. meniscus surgery 2019 Other Surgical History: cholecystectomy 06/2014, no other abd surgeries - Family History Known Family History: Positive: None - states parents living and healthy, Other - Denies FMH of HTN Negative: Cardiac Disease, Hypertension, Diabetes - Social History Alcohol Use: Occasionally Alcohol Amount: 1/WEEK Substance Use Type: None Substance Use Comment - Amount & Last Used: xanax Smoking Status (MU): Former Smoker Type: Cigarettes Amount Used/How Often: 05/10 PPD Length of Time of Smoking/Using Tobacco: Since Age 52 Have You Smoked in the Last Year: Yes When Did the Patient Quit Smoking/Using Tobacco: 06/2017 - Immunization History Most Recent Influenza Vaccination: 01/2015 Most Recent Tetanus Shot: 08/19/16 Vaccination Up to Date: Yes Review of Systems All Other Systems Reviewed And Are Negative: Yes Musculoskeletal: Positive: Arthralgia, Decreased ROM Physical Exam Triage Information Reviewed: Yes Appearance: No Pain Distress Vital Signs: Initial Vital Signs Temp 98.1 F 06/24/19 12:38 Pulse 101 06/24/19 12:38 Resp 20 06/24/19 12:38 BP 132/66 06/24/19 12:38 Pulse Ox 97 06/24/19 12:38 Vital Signs Reviewed: Yes Neck: Positive: 1 Respiratory Exam: Normal Cardiovascular Exam: Normal Musculoskeletal Exam: Normal Musculoskeletal: Positive: Strength Intact, ROM Intact, No Edema Neurological Exam: Normal Psychological Exam: Normal Skin Exam: Normal Images Hands: 1 - bruising / ecchymosis. cap refill < 3 sec. peripheral pulses brisk . no break in skin . strength 5/5 and sensation intact. slight reduced Active ROm due to pain /swelling Hand/Wrist Course/Dx - Differential Dx/Diagnosis Differential Diagnosis/HQI/PQRI: Fracture, Sprain, Strain, Tendonitis, Tenosynovitis Provider Diagnosis: Left hand pain Discharge ED - Sign-Out/Discharge Documenting (check all that apply): Patient Departure All imaging exams completed and their final reports reviewed: No Studies - Discharge Plan Condition: Good Disposition: HOME Patient Education Materials: Contusion in Adults (ED) Referrals: Anna Flores PA [Primary Care Provider] - 2 Weeks Vince You MD [Medical Doctor] - 2 Days - Billing Disposition and Condition Condition: GOOD Disposition: Home
[2019-06-24] MEDS ORDERED: Acetaminophen TAB* 325 MG PO ONE (13:06)
--- NOTE | 2019-06-24 15:37 | UC ---
- Progress Note Progress Note: Patient Name: ALEXUS MARTINEZ Medical Record#: [id number] Ordering Physician: Alvni Haider DO Acct.#: [id number] : 1965 Age: 54 Sex: F Location: [facility] Exam Date: 06/24/19 1305 ADM Status: REG ER Order Information: HAND - LEFT MINIMUM 3 VIEWS Accession Number: [id number] CPT: 59662 INDICATION: Locking episode LEFT fourth finger yesterday. COMPARISON: May 15, 2019 TECHNIQUE: AP, lateral, and oblique views LEFT hand. REPORT AND IMPRESSION: #. Negative for fracture or articular malalignment. #. 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 Mild osteoarthritis at the trapezium first metacarpal articulation. Negative for significant interval change. #. Diffuse soft tissue swelling. <Electronically signed by Vincent Camacho MD in OV> 06/24/19 1331 Dictated By: Vincent Camacho MD Dictated Date/Time: 06/24/19 1327 Transcribed Date/Time: 06/24/19 1327 Copy to: CC:Alvin Haider DO; Anna GAR[facility] - [facility] [address] [address] ph [phone]) ph ([phone]) ph ([phone]) This report is only to be considered final once signed by the Provider(s) as displayed in the "<Electronically Signed by >" field (s). Absence of a signature indicates the report is in a draft status and still needs to be finalized. In the event this document was created by someone other than the signing Provider, the individual initiating the document will be listed in the "Entered by:" or "Dictated by:" jean. 1 of 1 Course/Dx - Diagnoses Provider Diagnoses: Left hand pain Discharge ED - Sign-Out/Discharge Documenting (check all that apply): Post-Discharge Follow Up All imaging exams completed and their final reports reviewed: Yes - Discharge Plan Condition: Good Disposition: HOME Patient Education Materials: Contusion in Adults (ED) Referrals: Vince You MD [Medical Doctor] - 2 Days Anna Flores PA [Primary Care Provider] - 2 Weeks - Billing Disposition and Condition Condition: GOOD Disposition: Home
== END 2019-06-24 13:53 | disposition home or self-care (01) ==
LOC: UCCORT 11:20
DX: M79.642 Pain in left hand (principal); K21.9 Gastro-esophageal reflux disease without esophagitis; M79.89 Other specified soft tissue disorders; M19.041 Primary osteoarthritis, right hand; Z79.899 Other long term (current) drug therapy; Z87.891 Personal history of nicotine dependence; Z91.030 Bee allergy status; Z88.6 Allergy status to analgesic agent
CPT/HCPCS: 99212; A9270-GY; G0463

== ENCOUNTER 2021-06-18 13:06 | Observation (INO) ==
[~2021-06-18 13:06] MED LIST: Buffered Lidocaine 1% SYRIN 1 ml INTRADERM ONE; DiMENhydriNATE IV 50 mg/ml 1 ml VIAL IV PUSH ONE; HYDROcodone/ACETAMIN 5/325 mg TAB PO PRN; Lactated Ringers 1000 ml BAG 1,000 ML IV SCH; Metoclopramide 5 MG/ML VIAL (10 mg) IV PRN; Naloxone 0.4 mg VIAL 0.4 mg/ml 1 ml VIAL IV PRN; Ondansetron 4 mg VIAL 2 MG/ML 2 ml VIAL IV PRN; fentaNYL 100 mcg/2 ml 50 MCG/ML VIAL IV PRN
[2021-06-18] MEDS ORDERED: Propofol 10 MG/ML 20 ML BTL ONE (13:22)
[2021-06-18] MEDS ORDERED: Lidocaine 2% PF 5 ML VIAL ONE (13:23)
[2021-06-18] MEDS ORDERED: EPHEDrine (Pressors) 50 MG/ML VIAL ONE (13:27)
[2021-06-18] MEDS ORDERED: DiMENhydriNATE IV 50 mg/ml 1 ml VIAL ONE (13:49)
[2021-06-18] MEDS ORDERED: ceFAZolin 2 GM in NS PREMIX 2 GM/100 ML BAG IVPB ONE (13:49)
[2021-06-18] MEDS ORDERED: Dexamethasone IV 4 MG/ML VIAL 1 ml VIAL ONE (14:25)
[2021-06-18] MEDS ORDERED: Ropivacaine 5 MG/ML 20 ML VIAL 0.5% (100 MG) ONE (14:37)
[2021-06-18] MEDS ORDERED: Sodium Citrate/Citric Acid LIQ 15 ML UDC ONE (15:47)
[2021-06-18] MEDS ORDERED: ROPIVACAINE 5 MG/ML 30 ML BTL (0.5%) ONE (15:49)
[2021-06-18] MEDS ORDERED: Midazolam 2 mg/2 ml VIAL 1 mg/ml 2 ml VIAL (2 mg) ONE (15:58)
[2021-06-18] MEDS ORDERED: Ketamine HCL 50 mg/ml 10 ml VIAL (500 MG) ONE (16:22)
[2021-06-18] MEDS ORDERED: Ondansetron ODT 4 mg TAB 4 MG TAB PO PRN (16:51)
[2021-06-18] MEDS ORDERED: diPHENhydraMINE IV 50 MG/ML 1 ml VIAL (BENADRYL) IV PRN (16:51)
[2021-06-18] MEDS ORDERED: diPHENhydraMINE 25 mg TAB PO PRN (16:51)
[2021-06-18] MEDS ORDERED: Magnesium Hydroxide LIQ 30 ML UDC PO PRN (16:51)
[2021-06-18] MEDS ORDERED: Lactulose 30 ml UDC PO PRN (16:51)
[2021-06-18] MEDS ORDERED: Ondansetron 4 mg VIAL 2 MG/ML 2 ml VIAL IV PRN (16:51)
[2021-06-18] MEDS ORDERED: Lactated Ringers 1000 ml BAG 1,000 ML IV SCH (17:00)
[2021-06-18] MEDS: Magnesium Hydroxide LIQ 30 ML UDC PO SCH (22:24)
[2021-06-18] MEDS: Fluticasone NASAL SPRAY 50MCG 16 gm SPRAY BTL BOTH NARES SCH (22:25)
[2021-06-19] MEDS: ceFAZolin 1 GM ADVAN 1 GM in NS 0.9% 50 ML 50 ML IVPB SCH ×3 (00:47→15:16)
[2021-06-19] MEDS: Magnesium Hydroxide LIQ 30 ML UDC PO SCH (08:20)
[2021-06-19] MEDS: Fluticasone NASAL SPRAY 50MCG 16 gm SPRAY BTL BOTH NARES SCH (08:21)
[2021-06-19] MEDS ORDERED: Vitamin THERAPEUTIC TAB PO SCH (09:00)
[2021-06-19] MEDS ORDERED: NF: Mirabegron 25 mg ER TAB (NF) PO SCH (09:00)
[2021-06-19 10:21] LABS: Hematocrit 40 % (35-47); Hemoglobin 13.3 g/dL (12.0-16.0); Mean Platelet Volume 8.2 fL (7.4-10.4); Platelet Count 275 10^3/uL (150-450)
[2021-06-19 10:31] LABS: Potassium 4.1 mmol/L (3.5-5.0)
[2021-06-19 10:37] LABS: eGFR CKD-EPI 102.7 (>60)
[2021-06-19 16:17] VITALS: BP 118/79
== END 2021-06-19 17:01 | disposition home or self-care (01) ==
LOC: AA 13:06 → INTOOBSV 13:06 → SSU 20:50
PROVIDERS: ADMIT Orthopaedic Surgery Adult Reconstructive Orthopaedic Surgery; ATTEND Orthopaedic Surgery Adult Reconstructive Orthopaedic Surgery